=== PATIENT | male | born 1955 | race Hispanic/Latino ===

== ENCOUNTER 2023-10-14 07:49 | Emergency (ER) | payer SELFPAY ==
[2023-10-14 07:52] VITALS: BP 131/75
--- NOTE | 2023-10-14 08:10 | ED.GENMED ---
History of Present Illness
General
Chief Complaint: Swelling
Source: patient
Exam Limitations: none
Time Seen by Provider: 10/14/23 08:03
Travel History
Have you had any contact with someone who has COVID-19?: No
Do you have any symptoms of coronavirus? Fever > 100 degrees, chills, cough, shortness of breath, sore throat, loss of taste or smell, muscle aches, or headache?: No
History of Present Illness
History of Present Illness:
68-year-old male presents with a week to 10 days worth of increased redness swelling and pain to the right leg. No fevers chills or sweats. He is not a diabetic. No associated chest pain or shortness of breath. No known injury. No other
complaints at this time.
Phy Exam
Physical Exam
Physical Exam:
General: Overall nontoxic-appearing male no acute respiratory distress
HEENT : Normocephalic atraumatic
Heart: Regular rate and rhythm no murmurs
Lungs: Clear no wheeze or rales
Skin: Erythema swelling and induration noted to the right lower extremity mainly the lower leg from the ankle to about the knee. No draining wounds however looks like there is a healing blister on the medial aspect of the right ankle
Vascular: 2+ without pedis pulse bilateral feet musculoskeletal exam: The right calf is swollen and tender
Scores
Heart Failure Risk
Heart Failure Risk Score: Not Applicable
Course
Orders/Labs/Results
Orders:
Orders
10/14/23 08:08
Venous Doppler Lwr Ext Rt [[facility] Venous LOWER Ext RT] Urgent
Comment:
Reason For Exam: swelling
10/14/23 08:23
Complete Blood Count/With Diff Urgent
Comprehensive Metabolic Panel Urgent
10/14/23 09:52
Case Management Consult ONCE
Case Management Consult: Other
10/14/23 13:13
Enoxaparin Sodium [Lovenox] 100 mg SC NOW STA
10/14/23 13:32
Warfarin [Coumadin] 10 mg PO NOW STA
Abnormal Lab Results
10/14/23
08:23
WBC 3.4 L 10^3/uL
(4.8-10.8)
RBC 3.55 L 10^6/uL
(4.70-6.10)
Hgb 9.2 L g/dL
(13.0-18.0)
Hct 29.3 L %
(39.0-52.0)
MCH 25.9 L pg
(27.0-31.0)
MCHC 31.4 L g/dL
(33.0-37.0)
RDW 17.1 H %
(11.5-14.5)
Plt Count 108 L 10^3/uL
(130-400)
Absolute Lymphs (auto) 0.8 L 10^3/uL
(1.2-3.4)
Immature Gran % 0.6 H %
(0-0.5)
Chloride 110 H mmol/L
(98-107)
Creatinine 0.5 L mg/dL
(0.7-1.3)
Glucose 152 H mg/dl
(70-99)
Calcium 7.8 L mg/dl
(8.4-10.2)
Alkaline Phosphatase 251 H U/L
(38-126)
Albumin 3.0 L g/dl
(3.5-5.0)
10/14/23 08:23
10/14/23 08:23
Vital Signs
Initial and Last Documented VS:
Initial Vital Signs
Temp Pulse Resp BP Pulse Ox
98.3 F 73 16 131/75 100
10/14/23 07:52 10/14/23 07:52 10/14/23 07:52 10/14/23 07:52 10/14/23 07:52
Last Documented Vital Signs
Temp Pulse Resp BP Pulse Ox
98.3 F 73 16 131/75 100
10/14/23 07:52 10/14/23 07:52 10/14/23 07:52 10/14/23 07:52 10/14/23 07:52
MDM/Problems Addressed
Differential Diagnosis Includes:
Right lower leg swelling and erythema. Consider cellulitis versus DVT doubt underlying abscess
Will check labs. Ultrasound pending.
Patient has no prior medical records to review and has no other medical problems contributing to today's care.
*Critical Care Note
Total Time (30-74mins, 75-104mins- exclusive of procedures): Not Applicable
Update Note
Update Note:
Patient has DVT in right lower extremity on ultrasound. Social situation creates somewhat of a challenge for discharge. He has no insurance and does not have a family doctor. Will start patient on Lovenox for bridge to Coumadin. He will return
here in 3 days for INR recheck. He will in the interim be referred to [facility]. He received a once daily dosing of Lovenox here as well as a 10 mg loading dose of Coumadin. He will then transition to 5 mg daily for the next 2 days
with INR check in 3 days.
ED Attending Note
-
Portions of this chart may have been created with voice recognition software.� Occasional wrong word or��sound alike� substitutions may have occurred due to the inherent limitations of voice recognition software.
Discharge Plan
Departure
Patient Disposition: Home (Routine Discharge)
Date of Disposition: 10/14/23
Time of Disposition: 14:15
Patient with high blood pressure during this ER visit?: No
Discharge Problem:
DVT (deep venous thrombosis)
Instructions: Deep Vein Thrombosis (DVT) ED
Prescriptions:
New
enoxaparin [Lovenox] 60 mg/0.6 mL syringe
60 mg SC Q12H 7 Days Qty: 8.4 0RF
warfarin 5 mg tablet
5 mg PO DAILY Qty: 30 0RF
No Action
trolamine salicylate [Aspercreme] 10 % Cream
1 applic TOPICAL HSPRN PRN (Reason: left leg pain)
Referrals:
[facility]
NONE,* [Family Provider] -
Activity Restrictions/Additional Instructions:
Take 5 mg of Coumadin starting tomorrow. Use the Lovenox injection twice a day. Please return here this Wednesday for an INR recheck. You were referred to the [facility] for follow-up. Please call them tomorrow to start setting an
appointment
Interventions
Interventions:
*Risk Screen - Suicide Last Done: 10/14/23 07:52
*General Assessment Last Done: 10/14/23 07:52
*Neglect/Abuse Screening Last Done: 10/14/23 07:52
Discharge Date and Time
Print Language: LAO
[2023-10-14 08:15] VITALS: BMI 28.4
[2023-10-14 08:38] LABS: % Basophils 0.6 % (0-2); % Eosinophils 5.9 % (0-6); % Immature Granulocytes 0.6 % (0-0.5); % Lymphocytes 23.2 % (20.5-51.1); % Monocytes 7.1 % (1.7-9.3); % Neutrophils 62.6 % (42.2-75.2); Absolute Eosinophils 0.2 10^3/uL (0-0.7); Absolute Lymphocytes 0.8 10^3/uL (1.2-3.4); Absolute Monocytes 0.2 10^3/uL (0.1-0.6); Absolute Neutrophils 2.1 10^3/uL (1.4-6.5); Hematocrit 29.3 % (39.0-52.0); Hemoglobin 9.2 g/dL (13.0-18.0); Mean Corp Hgb Conc. 31.4 g/dL (33.0-37.0); Mean Corpuscular Hgb 25.9 pg (27.0-31.0); Mean Corpuscular Volume 82.5 fL (80.0-94.0); Mean Platelet Volume 9.8 fL (7.4-10.4); Nucleated Red Blood Cells % 0 % (-); Platelet Count 108 10^3/uL (130-400); Red Blood Cell Count 3.55 10^6/uL (4.70-6.10); Red Cell Dist. Width 17.1 % (11.5-14.5); White Blood Cell Count 3.4 10^3/uL (4.8-10.8)
[2023-10-14 08:56] LABS: ALT (SGPT) 42 U/L (0-50); AST (SGOT) 40 U/L (17-59); Alkaline Phosphatase 251 U/L (38-126); Blood Urea Nitrogen 14 mg/dl (9-20); Calcium 7.8 mg/dl (8.4-10.2); Carbon Dioxide 23 mmol/L (22-30); Chloride 110 mmol/L (98-107); Estimated Creatinine Clearance 91 ml/min; Glucose 152 mg/dl (70-99); Potassium 3.6 mmol/L (3.5-5.1); Sodium 141 mmol/L (135-145); Total Bilirubin 0.8 mg/dl (0.2-1.3); eGFR > 60.00
--- NOTE | 2023-10-14 13:33 | CM ---
Mayan speaking patient with Dx DVT right leg.
Spoke with MARCI Burrows; he would like to discharge this patient on Lovenox 60mg SQ BID x 7 days with Coumadin bridge. As patient has no insurance, request is for pharmacy cost and if patient/family can afford. He will issue Coumadin here
and patient will receive Lovenox first dose here with nurse teaching. He will have the patient return to the ED for labwork.
[facility] only has 10 injections in stock, valle for 10 would be $ 126.26 (they will provide discount card), she will have to obtain 4 more and cost for the last 4 will be $ 52.61 (with
discount card). Please write the full script for #14.

Met with patient and son Huang, who speaks Italian;
the patient resides with 3 friends in a 2nd floor apartment above a store, with 1 flight outside stairs.
The patient has been independent with ADLs and ambulation without using any assistive device.
He has no DME, prior VN.
The patient has no PCP.
Pharmacy confirmed with son as [facility].
Son confirms that the patient has no insurance. The son says that the family can afford the cost of the Lovenox and additional cost of Coumadin.
Provided [facility] brochures in Italian and Mohawk, with instruction to make appointment radhames for medical follow up.
The patient's and 6 children reside in [place]. There are 3 sons and 1 daughter who live here locally. The patient plans on returning back to [place] to live with family there later this year. 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
Son will provide transport home.

Spoke with nurse Nieves; provided update CM met with patient and son is hoping for d/c soon after Lovenox injection/teaching.
Plan home today with referral to [facility].
[2023-10-14] MEDS: COUMADIN 10 MG PO (14:15)
[2023-10-14] MEDS: LOVENOX 100 MG SC (14:17)
[2023-10-14 14:54] VITALS: BP 117/61
== END 2023-10-14 14:56 | disposition home or self-care (01) ==
LOC: EMR 07:49
PROVIDERS: Physician Assistant; EMERGENCY PHYSICIAN Emergency Medicine
DX: I82.441 Acute embolism and thrombosis of right tibial vein (principal); Z79.01 Long term (current) use of anticoagulants
CPT/HCPCS: 99284; 96372; 80053; 85025; 93971

== ENCOUNTER → 2023-10-17 07:33 | Emergency (ER) | payer SELFPAY ==
[2023-10-17 07:35] VITALS: BP 126/65
[2023-10-17 09:14] LABS: INR 1.94
--- NOTE | 2023-10-17 09:48 | ED.GENMED ---
History of Present Illness
General
Chief Complaint: Abnormal Lab Value
Source: patient and family
Time Seen by Provider: 10/17/23 08:42
Travel History
Have you had any contact with someone who has COVID-19?: No
Do you have any symptoms of coronavirus? Fever > 100 degrees, chills, cough, shortness of breath, sore throat, loss of taste or smell, muscle aches, or headache?: No
History of Present Illness
History of Present Illness:
68-year-old male with a history of recent DVT diagnosis who presents for repeat INR check. He was put on Lovenox and Coumadin. Patient has not yet called the free clinic. He otherwise has been tolerating his injections well. No other complaints.
Leg is unchanged.
Past History
Past History
ED Past Medical History: Other (DVT)
Phy Exam
Physical Exam
Physical Exam:
CONSTITUTIONAL Vital signs reviewed, Patient alert and oriented to person, place and time. Well-appearing
HEAD atraumatic, normocephalic.
EYES eyelids normal to inspection, Extraocular muscles intact, Conjunctiva normal, Sclera normal.
NECK normal range of motion, Trachea midline, no jugular venous distention.
RESP no respiratory distress
BACK No obvious deformities
UPPER EXTREMITY Gross Range of motion normal, gross motor strength normal
LOWER EXTREMITY Gross range of motion normal, Gross motor strength normal
NEURO Speech normal, No focal motor deficits include, Catrachita coma scale 15, Memory normal, Cranial Nerves intact to screening exam.
SKIN Skin warm, dry, and normal in color.
PSYCHIATRIC Patient oriented to person place and time, Normal affect.
Course
Orders/Labs/Results
Orders:
Orders
10/17/23 08:56
PT/INR [Prothrombin Time] Urgent
10/17/23 09:52
Case Management Consult ONCE
Case Management Consult: Discharge Planning
Abnormal Lab Results
10/17/23
08:56
PT 22.0 H Sec
(11.4-14.6)
Vital Signs
Initial and Last Documented VS:
Initial Vital Signs
Temp Pulse Resp BP Pulse Ox
99.7 F 76 20 126/65 98
10/17/23 07:35 10/17/23 07:35 10/17/23 07:35 10/17/23 07:35 10/17/23 07:35
Last Documented Vital Signs
Temp Pulse Resp BP Pulse Ox
99.7 F 76 20 126/65 98
10/17/23 07:35 10/17/23 07:35 10/17/23 07:35 10/17/23 07:35 10/17/23 07:35
MDM/Problems Addressed
MDM/Problems Addressed:
DVT, therapeutic coagulopathy
*Pulse Oximetry
Patient hypoxic: no
*Critical Care Note
Total Time (30-74mins, 75-104mins- exclusive of procedures): Not Applicable
Data Reviewed
Review of Other/Old Records Reveals: Radiology Studies (DVT report reviewed)
Source: patient and family (Patient's son)
Prescriptions/Medications Considered But Not Given:
Considered Eliquis but unlikely to be able to afford it
Patient Management
Social determinants of health affecting care: Living situation
Discussion with other providers: Other (Case management)
Escalation/DeEscalation of care consider admission/obs:
Continue Lovenox for now but repeat INR this week. Resources given by case management and they will follow-up to make sure that he gets an appointment. INR prescription given for repeat INR. Okay for discharge
ED Attending Note
-
Portions of this chart may have been created with voice recognition software.� Occasional wrong word or��sound alike� substitutions may have occurred due to the inherent limitations of voice recognition software.
Discharge Plan
Departure
Patient Disposition: Home (Routine Discharge)
Date of Disposition: 10/17/23
Time of Disposition: 09:49
Patient with high blood pressure during this ER visit?: No
Discharge Problem:
DVT (deep venous thrombosis)
Instructions: Deep vein thrombosis (blood clot in the leg)
Prescriptions:
No Action
trolamine salicylate [Aspercreme] 10 % Cream
1 applic TOPICAL HSPRN PRN (Reason: left leg pain)
enoxaparin [Lovenox] 60 mg/0.6 mL syringe
60 mg SC Q12H 7 Days Qty: 8.4 0RF
warfarin 5 mg tablet
5 mg PO DAILY Qty: 30 0RF
Referrals:
UNKNOWN - PT DOES,NOT KNOW [Family Provider] -
Activity Restrictions/Additional Instructions:
Please have your lab work checked on . Continue the Lovenox injections as prescribed. Please see the clinic as soon as possible over the next 3 to 5 days. Return immediately for chest pain, shortness of breath, fevers, worsening symptoms,
bleeding of any kind or any other concerns.
Por favor revise rowe an�lisis de laboratorio el jueves. Contin�e con las inyecciones de Lovenox seg�n lo prescrito. Consulte la cl�miguelina lo antes posible linda los pr�ximos 3 a 5 d�as. Regrese inmediatamente si tiene dolor en el pecho, dificultad
para respirar, fiebre, s�ntomas que empeoran, sangrado de cualquier tipo o cualquier otra inquietud.
Discharge Date and Time
Print Language: ANGOLAN
--- NOTE | 2023-10-17 10:03 | CM ---
CM provided patient with pamphlet for [facility]. Patient further advised to call [facility] for self pay pricing for PT/INR. Son understands and was given number for outpatient lab to discuss self pay options.
== END | disposition home or self-care (01) ==
LOC: EMR 07:33
PROVIDERS: EMERGENCY PHYSICIAN Emergency Medicine
DX: I82.409 Acute embolism and thrombosis of unspecified deep veins of unspecified lower extremity (principal); Z79.01 Long term (current) use of anticoagulants
CPT/HCPCS: 99282; 85610

== ENCOUNTER 2023-11-15 20:57 | Inpatient (IN) | payer OTHER, SELFPAY ==
[2023-11-15 16:05] VITALS: BMI 28.0
[2023-11-15 16:08] VITALS: BP 116/65
[2023-11-15 16:32] LABS: % Basophils 0.2 % (0-2); % Eosinophils 6.5 % (0-6); % Immature Granulocytes 0.3 % (0-0.5); % Lymphocytes 19.7 % (20.5-51.1); % Monocytes 9.1 % (1.7-9.3); % Neutrophils 64.2 % (42.2-75.2); Absolute Eosinophils 0.4 10^3/uL (0-0.7); Absolute Lymphocytes 1.2 10^3/uL (1.2-3.4); Absolute Monocytes 0.5 10^3/uL (0.1-0.6); Absolute Neutrophils 3.8 10^3/uL (1.4-6.5); Hemoglobin 10.1 g/dL (13.0-18.0); Mean Corp Hgb Conc. 31.6 g/dL (33.0-37.0); Mean Corpuscular Hgb 24.9 pg (27.0-31.0); Mean Corpuscular Volume 78.8 fL (80.0-94.0); Nucleated Red Blood Cells % 0 % (-); Red Blood Cell Count 4.06 10^6/uL (4.70-6.10); Red Cell Dist. Width 15.4 % (11.5-14.5); White Blood Cell Count 5.8 10^3/uL (4.8-10.8)
[2023-11-15 16:44] LABS: Lactic Acid 1.7 mmol/L (0.7-2.0)
[2023-11-15 16:45] LABS: ALT (SGPT) 37 U/L (0-50); AST (SGOT) 39 U/L (17-59); Albumin 3.5 g/dl (3.5-5.0); Alkaline Phosphatase 198 U/L (38-126); Blood Urea Nitrogen 17 mg/dl (9-20); Calcium 8.2 mg/dl (8.4-10.2); Carbon Dioxide 22 mmol/L (22-30); Chloride 108 mmol/L (98-107); Glucose 110 mg/dl (70-99); Potassium 3.6 mmol/L (3.5-5.1); Sodium 136 mmol/L (135-145); Total Bilirubin 1.4 mg/dl (0.2-1.3); Total Protein 7.8 g/dl (6.3-8.2); eGFR > 60.00
[2023-11-15 16:54] LABS: NT-proBNP < 20.0 pg/ml
[2023-11-15 17:07] LABS: Mean Platelet Volume 10.5 fL (7.4-10.4); Platelet Count 90 10^3/uL (130-400)
--- NOTE | 2023-11-15 18:25 | ED.GENMED ---
History of Present Illness
General
Chief Complaint: Skin Problem
Source: patient and family (Son)
Exam Limitations: other (language barrier)
Time Seen by Provider: 11/15/23 17:55
History of Present Illness
History of Present Illness:
This is a 68 year old male that comes in with c/o right leg swelling and bleeding. Son states that they were here a few weeks ago and he was told that he had a DVT to follow up in the CLinic. Patient was place on Lovenox and Coumadin. Son states
that they have not been able to get into the clinic as they were told they needed the paper work completed so patient has not been taking any medicaiton. States that today his leg is swollen and bleeding. Denies any fever, chills, chest pain, SOB,
abd pain, nausea, vomiting, diarrhea, headache, dizziness, urinary burning.
Past History
Past History
ED Past Medical History: Other (DVT); Negative Asthma, HTN, Hypercholesterolemia or NIDDM
ED Past Surgical History: None
Social History
Tobacco: Non-smoker
Alcohol: None
Personal:
Living: with family
Review of Systems
Review of Systems
All Other Systems: ROS reviewed and negative except as documented in HPI and ROS
Constitutional: Reports no symptoms; Denies fever or chills
EENT: Reports no symptoms
Respiratory: Denies cough or trouble breathing
Cardiac: Reports no symptoms; Denies chest pain
ABD/GI: Reports no symptoms; Denies abdominal pain, nausea, vomiting or diarrhea
: Reports no symptoms; Denies dysuria, frequency or urgency
Musculoskeletal: Reports edema (Swelling right leg with area's of bleeding)
Skin: Reports no symptoms
Neurological: Reports no symptoms; Denies dizzy or headache
Psychiatric: Reports no symptoms
Phy Exam
General Physical Exam
General Presentation: no apparent distress
General age: appears stated age
General Skin: warm and dry
General Habitus: elderly
General Mental: alert
General Hydration: appears well hydrated
ENT Exam
ENT Exam: TM's normal, pharynx normal and neck supple
Eye Exam
Eye Exam: EOMI
Cardiovascular Exam
Cardiovascular Exam: regular rate/rhythm, no edema, no murmur and normal peripheral pulses
Pulmonary Exam
Pulmonary Exam: lungs clear, no respiratory distress, no rales, chest non tender, no crackles, no rhonchi, no wheezing and no cough
Gastrointestinal Exam
Gastrointestinal Exam: normal bowel sounds, non tender, soft, no organomegaly, no pulsatile mass and non distended
Musculoskeletal Exam
Musculoskeletal Exam: edema and other
Skin Exam
Skin Exam: normal color, warm/dry, no petechia and redness (right lower leg with increased warmth and blistering with oozing. There is also skin tears on the proximal lower leg. )
Psychiatric Exam
Psychiatric Exam: normal mood/affect
Course
Orders/Labs/Results
Orders:
Orders
11/15/23 16:21
BNP [NT-proBNP] Urgent
Complete Blood Count/With Diff Urgent
Comprehensive Metabolic Panel Urgent
Lactic Acid Urgent
Blood Culture Urgent
NORY Source: Blood/Venous
Specimen Description:
11/15/23 18:26
Prothrombin Time Urgent
US Legs, Right [US Periph Venous LOWER Ext RT] Urgent
Comment: History of DVT but denies blood thinners
Reason For Exam: Swelling
Abnormal Lab Results
11/15/23
16:21
RBC 4.06 L 10^6/uL
(4.70-6.10)
Hgb 10.1 L g/dL
(13.0-18.0)
Hct 32.0 L %
(39.0-52.0)
MCV 78.8 L fL
(80.0-94.0)
MCH 24.9 L pg
(27.0-31.0)
MCHC 31.6 L g/dL
(33.0-37.0)
RDW 15.4 H %
(11.5-14.5)
Plt Count 90 L 10^3/uL
(130-400)
MPV 10.5 H fL
(7.4-10.4)
Lymphocytes % 19.7 L %
(20.5-51.1)
Eosinophils % 6.5 H %
(0-6)
Chloride 108 H mmol/L
(98-107)
Creatinine 0.6 L mg/dL
(0.7-1.3)
Glucose 110 H mg/dl
(70-99)
Calcium 8.2 L mg/dl
(8.4-10.2)
Total Bilirubin 1.4 H mg/dl
(0.2-1.3)
Alkaline Phosphatase 198 H U/L
(38-126)
11/15/23 16:21
11/15/23 16:21
H/H low,. Anemia, Hyperglycemia. Calcium slightly low. Alk phos elevation. Lactic acid normal at 1.7, Pro-BNP<20.0
Vital Signs
Initial and Last Documented VS:
Initial Vital Signs
Temp Pulse Resp BP Pulse Ox
98.1 F 81 20 116/65 99
11/15/23 16:08 11/15/23 16:08 11/15/23 16:08 11/15/23 16:08 11/15/23 16:08
Last Documented Vital Signs
Temp Pulse Resp BP Pulse Ox
98.1 F 81 20 116/65 99
11/15/23 16:08 11/15/23 16:08 11/15/23 16:08 11/15/23 16:08 11/15/23 16:08
MDM/Problems Addressed
Differential Diagnosis Includes:
Cellulitis, DVT untreated
MDM/Problems Addressed:
This is a 68 year old male that is brought in by famly with c/o right leg swelling, redness and bleeding.
Will get labs, US and admit as patient has not been able to get into the Clinic for further care.
Chronic conditions affecting care:
History of DVT
Acute Exacerbation and/or Progression of Chronic Illness:
DVT
*Radiology
Radiology exam reviewed: radiology read reviewed (US=No sonographic evidence for acute right lower extremity deep venous thrombosis. Chronic nonocclusive deep venous thrombosis in the right peroneal vein. )
*Pulse Oximetry
Patient hypoxic: no
*EKG
Interpreted by ED Provider?: NA
Rate: EKG- N/A
*Newspaper Editor Interpretation
Rate: Newspaper Editor- N/A
*Critical Care Note
Total Time (30-74mins, 75-104mins- exclusive of procedures): Not Applicable
ED Attending Note
-
Portions of this chart may have been created with voice recognition software.� Occasional wrong word or��sound alike� substitutions may have occurred due to the inherent limitations of voice recognition software.
Discharge Plan
Departure
Patient Disposition: Admit
Date of Disposition: 11/15/23
Time of Disposition: 19:36
Admit to: Med/Surg
Presentation/result/management discussed w/ accepting MD/DO: Hospitalist
Patient with high blood pressure during this ER visit?: No
Condition: Good
Covid-19: Not Applicable
Discharge Problem:
Cellulitis with blistering right leg
Prescriptions:
No Action
No Current Medications
0
Referrals:
NONE,* [Family Provider] -
Interventions
Interventions:
*Risk Screen - Suicide Last Done: 11/15/23 16:08
*General Assessment Last Done: 11/15/23 16:08
*Neglect/Abuse Screening Last Done: 11/15/23 16:08
ED- Fall Risk Assessment Last Done: 11/15/23 18:00
ED-Skin Assessment Last Done: 11/15/23 18:00
Discharge Date and Time
Print Language: CROATIAN
[2023-11-15 19:44] LABS: INR 1.31; PT 16.1 Sec (11.4-14.6)
--- NOTE | 2023-11-15 19:58 | HPS.HSE ---
Family Physician
-
Family Physician: * NONE
Chief Complaint
-
Right lower extremity increased erythema, pain, weeping
History of Present Illness
68-year-old male was seen on 10/14/2023 for a 10-day history of pain and swelling to his right leg. He was diagnosed with a DVT and was put on Lovenox and Coumadin and sent back on 10/17/2023 for INR check. He was due to [facility] but was unable to get an appointment due to incompleted paperwork, therefore he has not been taking any Coumadin. He returns today for increased swelling to his leg with edema and weeping serous fluid. His son is at bedside with him who
states it took several weeks to complete the paperwork and submitted. His father has been here illegally for 19 years illegally along with himself illegally. 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 I made the
son aware he cannot be working or lifting with an untreated DVT in his current leg. He has not seen a doctor in over 20 years he is on no current medications with no past surgical history
Medical History
Past Medical History
Past Medical History: Reports Other
Past Surgical History: Reports None
Social History
Tobacco: Former Smoker (Quit 14 years ago)
Alcohol: Occasional (Every 3 months)
Living: With Family
Employment: Employed
Family History
Family History: Not pertinent
Allergies / Home Medications
Allergies reflects when Allergies were last updated in [facility].
Home Medications with original date entered in [facility]
Allergy/Medication List:
Allergies
Allergy/AdvReac Type Severity Reaction Status Date / Time
No Known Allergies Allergy Verified 11/15/23 16:08
Home Medications
No Meds [No Current Medications] 11/15/23
Review of Systems
-
History Source: Patient and Family (Son at bedside translating for patient who speaks Iraqi)
A 12 point ROS was completed and negative except as noted: Yes
Constitutional: Denies Fever or Fatigue
EENT: Denies Sore Throat or Runny Nose
Respiratory: Denies Cough or Trouble Breathing
Cardiac: Denies Chest Pain, Diaphoresis, Palpitations or Syncope
Abdomen/GI: Denies Abdominal Pain, Nausea, Vomiting, Diarrhea, Constipated, Bloody Stools or Black Stools
: Denies Dysuria, Frequency, Flank Pain, Incontinence or Difficulty Voiding
Musculoskeletal: Reports Edema (Right lower extremity edema +2 weeping serous fluid, resolved blister medial aspect of leg surrounding slight pink erythema likely secondary to edema); Denies Joint Pain
Skin: Denies Itching or Rash
Neurological: Denies Dizzy, Headache or Weakness
Endocrine: Reports No Symptoms
Hematologic/Lymphatic: Reports No Symptoms
Psych: Reports Calm
Physical Exam
Vital Signs
Vital Signs
Temp Pulse Resp BP Pulse Ox
98.1 F 81 20 116/65 99
11/15/23 16:08 11/15/23 16:08 11/15/23 16:08 11/15/23 16:08 11/15/23 16:08
Physical Exam
General: Comfortable and Conversant; No Fever or Chills
HEENT: NormoCephalic, Anicteric, Moist mucous membranes, PERRLA, [place] Conjunctivae and No Ptosis
Respiratory: Clear; No Wheezes, Rales or Rhonchi
Cardiac: S1/S2, Regular Rhythm and Peripheral Edema (Right lower extremity edema +2 weeping serous fluid, resolved blister medial aspect of leg surrounding slight pink erythema likely secondary to edema); No Murmur, Rub or Gallop
Breast: Deferred by me
GI: Soft, Non Tender, Non Distended, Normal Bowel Sounds and No Hepatosplenomegaly
Rectal: Deferred by Provider
Genito-urinary: Deferred by me
Musculoskeletal: No Clubbing, No Cyanosis and Edema, Right Lower Extremity (Right lower extremity edema +2 weeping serous fluid, resolved blister medial aspect of leg surrounding slight pink erythema likely secondary to edema); No Edema, Left Upper
Extremity, Edema, Right Upper Extremity or Edema, Left Lower Extremity
Skin: Warm and Dry; No Rash
Neuro: AO x 3, No Motor Deficits, Nonfocal/grossly intact, Cranial Nerves Intact and No Sensory Deficits; No Slurred Speech, Facial Droop or Tremors
Psych: Calm
Laboratory Results
-
11/15/23 16:21
11/15/23 16:21
Laboratory Results
PT 16.1 Sec (11.4-14.6) H 11/15/23 19:23
INR 1.31 11/15/23 19:23
Lactic Acid 1.7 mmol/L (0.7-2.0) 11/15/23 16:21
Total Bilirubin 1.4 mg/dl (0.2-1.3) H 11/15/23 16:21
AST 39 U/L (17-59) 11/15/23 16:21
ALT 37 U/L (0-50) 11/15/23 16:21
Alkaline Phosphatase 198 U/L (38-126) H 11/15/23 16:21
Impression/Plan
-
Impression/plan:
Admit to MedSurg
#Right leg cellulitis with Chronic Nonocclusive DVT RIGHT PERINEAL VEIN
#Recent Dx DVT right lower extremity 10/14/2023
Was put on Lovenox to Coumadin bridge due to no insurance/no PCP
-Iv Ancef q8h
- Iv Heparin gtt
Right lower extremity peripheral venous ultrasound: Chronic nonocclusive DVT right peroneal vein
no acute right lower extremity DVT
#Chronic anemia microcytic
Hgb 10.1 prior 23 Sep 2023
Check iron, TIBC, ferritin, B12, folate
-check hemo occult
# Acute thrombocytopenia unclear etiology
PLT 90 prior October 14, 2023
- Consult Heme
#Former smoker
Quit 14 years ago
DVT prophylaxis
iv heparin gtt
Full code
[2023-11-15] MEDS: ZOSYN 50 IV (20:03)
[2023-11-15] MEDS: VANCOCIN 200 IV (20:35)
--- NOTE | 2023-11-15 21:00 | W.PN.UPDATE ---
Update Note
Progress Note Update
This is an addendum to the H&P written by Niru Delgado on 11/15/2023. Patient seen examined independently with CLAIMS COUNSEL.
68-year-old illegal Cypriot-speaking male with history of right lower extremity DVT not adequately treated with anticoagulation presenting with increasing swelling and edema and weeping the right lower extremity.
Labs show shows microcytic anemia with hemoglobin 10.1. Also mild thrombocytopenia unclear etiology. As per son patient is having some bright red blood per rectum after wiping suggesting hemorrhoidal etiology.
# Right lower extremity unprovoked DVT
-Heparin drip
-IV Ancef for possible superinfection
# Microcytic anemia suspect GI blood loss
-Check Hemoccult, iron studies, B12, folate
# Thrombocytopenia unclear etiology
-Hematology consulted
[2023-11-15 21:07] LABS: Total Iron Binding Capacity 428 ug/dl (261-462)
[2023-11-15 21:11] LABS: APTT 29.9 Sec (23.4-35.0)
[2023-11-15 21:22] LABS: Iron 49 ug/dl (49-181); Percent Saturation 11 % (20-50)
[2023-11-15 21:28] LABS: Ferritin 12.5 ng/ml (17.9-464.0)
[2023-11-15 21:41] VITALS: BP 140/65; BMI 26.7
[2023-11-15 21:59] LABS: Folate 14.2 ng/ml (2.76-20); Vitamin B12 496 pg/ml (239-931)
[2023-11-15 22:00] LABS: Hematocrit 30.6 % (39.0-52.0); Hemoglobin 10.2 g/dL (13.0-18.0); Mean Corp Hgb Conc. 33.3 g/dL (33.0-37.0); Mean Corpuscular Hgb 25.2 pg (27.0-31.0); Mean Corpuscular Volume 75.7 fL (80.0-94.0); Mean Platelet Volume 10.4 fL (7.4-10.4); Platelet Count 87 10^3/uL (130-400); Red Blood Cell Count 4.04 10^6/uL (4.70-6.10); Red Cell Dist. Width 15.6 % (11.5-14.5); White Blood Cell Count 5.6 10^3/uL (4.8-10.8)
[2023-11-15] MEDS: HEPARIN 4000 UNITS IV (22:49)
[2023-11-15] MEDS: HEPARIN 25000 UNITS/250 ML IV (22:51)
[2023-11-15 23:57] VITALS: BP 118/52
--- NOTE | 2023-11-16 00:34 | PTCARENOTE ---
Pt received from ED aaox3, pt son at bedside helped with communication as pt primarily K[place] speaking & 2nd language is macedonian. Pt leg with draining wounds, wound care consult placed. Pt started on heparin drip as ordered & bolus givem. Pt & son
explained about the plan of care.Call brunson in reach.
[2023-11-16] MEDS: ANCEF 5 IV ×3 (03:17→17:18)
[2023-11-16] MEDS: FLUSH (NSS) 1 FLUSH IV (03:17)
[2023-11-16 06:20] LABS: APTT 116.9 Sec (23.4-35.0)
[2023-11-16 07:35] VITALS: BP 100/62
--- NOTE | 2023-11-16 09:06 | W.PN.HOSP.TC ---
Addendum entered and electronically signed by Elliot Snyder MD 11/16/23 13:46:
Noticed hematology input so will stop heparin gtt and start Lovenox for prevention doses.
Original Note:
Today's Communication/Plan
-
IV antibiotics. Heparin drip. Hematology eval. PT OT
Assessment / Plan
Assessment / Plan
Physical exam:
General: Acutely ill
HEENT: Normocephalic, Atraumatic and Moist Mucous Membranes
Respiratory: Clear to Auscultation; Negative Wheezes, Rales or Rhonchi
Cardiac: Regular Rhythm and S1/S2
GI: Soft, Nontender and Nondistended
Musculoskeletal: Right lower extremity erythema. Wounds in the tibia and foot area. No Clubbing, No Cyanosis
Neuro: Awake, Alert and Oriented
Psych: Calm
A/P:
Right lower extremity cellulitis:
Continue IV cefazolin
Would consult
Elevate lower extremity
PT OT eval
Chronic DVT, right lower extremity (untreated):
Continue IV heparin drip
Hematology consult pending
Monitor hemoglobin
Thrombocytopenia:
Appears to be chronic
Hematology eval
Platelet count 81 today
No active bleeding
Anemia:
Hemoglobin 10.1 today
Stable
Continue to monitor hemoglobin on anticoagulant
Hemorrhoidal bleed:
Monitor for any worsening
DVT prophylaxis:
On heparin drip
CODE STATUS:
Full code
Anticipated Discharge: 24 - 48 hours
Subjective/Interval History
-
Date of Service: November 16, 2023
Patient complains of right leg discomfort. Afebrile
Objective Data
-
Labs:
Laboratory Results
11/15/23 11/15/23 11/16/23
19:23 21:53 05:46
WBC 5.6
Hgb 10.2 L
Hct 30.6 L
Plt Count 87 L
APTT 29.9 116.9 H
11/16/23
12:40
WBC
Hgb
Hct
Plt Count
APTT Pending
Vital Signs:
Vital Signs
Temp Pulse Resp BP Pulse Ox
98.7 F 69 18 100/62 97
11/16/23 07:35 11/16/23 07:35 11/16/23 07:35 11/16/23 07:35 11/16/23 07:35
I&O
11/15/23 11/16/23 11/17/23
06:59 06:59 06:59
Intake Total 240 / 240
Balance 240 / 240
[2023-11-16] MEDS: FLUSH (NSS) 2 FLUSH IV ×2 (10:06→17:18)
[2023-11-16 10:29] LABS: % Basophils 0.2 % (0-2); % Eosinophils 7.2 % (0-6); % Immature Granulocytes 0.2 % (0-0.5); % Lymphocytes 25.7 % (20.5-51.1); % Monocytes 8.7 % (1.7-9.3); Absolute Eosinophils 0.3 10^3/uL (0-0.7); Absolute Lymphocytes 1.2 10^3/uL (1.2-3.4); Absolute Monocytes 0.4 10^3/uL (0.1-0.6); Absolute Neutrophils 2.6 10^3/uL (1.4-6.5); Hematocrit 32.6 % (39.0-52.0); Hemoglobin 10.1 g/dL (13.0-18.0); Mean Corpuscular Hgb 24.6 pg (27.0-31.0); Mean Corpuscular Volume 79.3 fL (80.0-94.0); Mean Platelet Volume 10.8 fL (7.4-10.4); Nucleated Red Blood Cells % 0 % (-); Platelet Count 81 10^3/uL (130-400); Red Blood Cell Count 4.11 10^6/uL (4.70-6.10); Red Cell Dist. Width 15.7 % (11.5-14.5); White Blood Cell Count 4.5 10^3/uL (4.8-10.8)
[2023-11-16 10:55] LABS: Blood Urea Nitrogen 16 mg/dl (9-20); Carbon Dioxide 18 mmol/L (22-30); Chloride 109 mmol/L (98-107); Estimated Creatinine Clearance 81 ml/min; Glucose 225 mg/dl (70-99); Potassium 3.9 mmol/L (3.5-5.1); Sodium 135 mmol/L (135-145); eGFR > 60.00
--- NOTE | 2023-11-16 11:38 | WOUNDNOTE ---
LEGS WITH PHOTO FLASH
--- NOTE | 2023-11-16 11:38 | WOUNDNOTE ---
R DORSAL FOOT WITH FLASH
--- NOTE | 2023-11-16 11:39 | WOUNDNOTE ---
R MEDIAL DORSAL FOOT
--- NOTE | 2023-11-16 11:39 | WOUNDNOTE ---
R MEDIAL LOWER LEG BELOW KNEE
--- NOTE | 2023-11-16 11:41 | WOUNDNOTE ---
SUSAN RN note: Patient admitted with R leg cellulitis.
See H&P for complete history. Lives with Son in an apartment.
PMH: DVT.
Wound Location and type/assessment: Patient admitted with: chronic non occlusive DVT in R peroneal vein. R medial leg and foot with open shallow blisters, large serous on dorsal foot. Suspect blisters related to leg swelling. Wounds painful to
touch when cleaning, skin warm, +pedal pulses, 3+ edema. Able to lift leg, nothing open posterior leg, heel intact. Patient does not speak [place] Verde[place].
Appetite: good.
Pressure redistribution devices in place: Accumax, ad dean
Plan: local absorptive wound care dressing applied, leg elevation. Skin dry on both legs, will order mineral oil for tomorrow. Will confirm orders with hospitalist and updated nurse Cinthya.
Updated care plan and will follow as needed.
Note to case management of equipment requested for discharge: TBD
Recommend follow up at wound care center upon discharge.
--- NOTE | 2023-11-16 12:29 | CON.ONC ---
Impression
Impression
Cellulitis right lower extremity
Thrombosis right peroneal vein, possibly chronic
Unexplained iron deficiency anemia
Mild thrombocytopenia
Plan
Plan
Antibiotics as per primary service. By the reading of the most recent venous Doppler, he does not require full dose anticoagulation. Even the prior venous Doppler showed clot only below the knee, and as such monitoring as opposed to full dose
anticoagulation would be an option.
Will hold off on IV iron, some potential risk given acute infection.
Will eventually need GI evaluation.
I am concerned that he has some swelling and pain in his thigh area on the right, which seems a little distant from his acute cellulitis. He may need imaging of the abdomen, pelvis, and thigh.
Regarding his thrombocytopenia, would recommend monitoring for now. This could conceivably be due to the infection. He should be started on oral iron.
Patient History
History of Present Illness
Consult from Dr. Hwang regarding deep vein thrombosis
This 68-year-old man was admitted with cellulitis. He is here about 1 month ago with swelling of his right lower extremity, and was found to have thrombosis of the right posterior tibial and peroneal veins, as well as cellulitis. He was discharged
on Lovenox and warfarin with follow-up in the [facility] clinic, which unfortunately did not occur. As best I can see, he was not placed on antibiotics. Since then, the leg is worsened. He is now clinically felt to have an overt cellulitis.
Repeat venous Doppler shows only thrombosis in the peroneal vein, and that is felt to be chronic. He is also been found to be iron deficient, with a ferritin of 12. He has had a mild thrombocytopenia between 80,000 and 100,000 during all of his
lab tests in the past month.
Patient Medication
�Medication �Instructions �Recorded �Confirmed �Last Taken �Type
No Meds [No Current Medications] 11/15/23 11/15/23 Unknown History
Active Medications
Generic Name Dose Route Start Last Admin
Trade Name Freq PRN Reason Stop Dose Admin
Emollient Ointment 0 applic 11/17/23 08:00
Petrolatum/Mineral Oil (Hydrophor) Oint 100 Gram TOPICAL 12/15/23 07:59
DAILY MALIHA
Heparin Sodium 5,200 units 11/15/23 20:48
Heparin 80 Units/Kg Rebolus-Do Not Discard IV 12/13/23 20:47
PRN PRN
PTT < OR = 64 seconds
Heparin Sodium 2,600 units 11/15/23 20:48
Heparin 40 Units/Kg Rebolus-Do Not Discard IV 12/13/23 20:47
PRN PRN
PTT = 64.1 to 72.9 seconds
Heparin Sodium 25,000 units in 250 mls @ 0 mls/hr 11/15/23 20:30 11/15/23 22:51
Heparin 51489 Units/250 Ml IV 250 mls
PER PROTOCOL MALIHA Administration
Protocol
Per Protocol
Cefazolin Sodium 1 gram in 5 mls @ 60 mls/hr 11/16/23 02:00 11/16/23 10:06
Ancef IV 5 mls
Q8H MALIHA Administration
Sodium Chloride 0 flush 11/15/23 22:00 11/16/23 10:06
Sodium Chloride 0.9% (Flush) Syringe IV 12/13/23 21:59 2 flush
PER PROTOCOL MALIHA Administration
Tramadol HCl 25 mg 11/15/23 23:37
Tramadol Hcl 50 Mg Tablet PO 12/13/23 23:36
Q6HPRN PRN
mod pain
Review of Systems
-
All Other Systems: Reviewed and Negative
Physical Exam
-
Physical examination shows the patient to be in no acute distress.
HEENT exam is unremarkable.
There are no palpable nodes.
Chest is clear.
The heart is regular with no murmur or gallop.
The abdomen is soft and nontender with no organomegaly or masses.
Extremities show the right lower extremity to be dressed from the knee down. On that side, the thigh is mildly swollen compared to the left, and he does complain of tenderness there as well..
Neurologic is grossly intact.
Labs
Lab Results
WBC 4.5 10^3/uL (4.8-10.8) L 11/16/23 10:01
RBC 4.11 10^6/uL (4.70-6.10) L 11/16/23 10:01
Hgb 10.1 g/dL (13.0-18.0) L 11/16/23 10:01
Hct 32.6 % (39.0-52.0) L 11/16/23 10:01
MCV 79.3 fL (80.0-94.0) L 11/16/23 10:01
MCH 24.6 pg (27.0-31.0) L 11/16/23 10:01
MCHC 31.0 g/dL (33.0-37.0) L 11/16/23 10:01
RDW 15.7 % (11.5-14.5) H 11/16/23 10:01
Plt Count 81 10^3/uL (130-400) L 11/16/23 10:01
MPV 10.8 fL (7.4-10.4) H 11/16/23 10:01
Abs Immat Gran (auto) 0.0 10^3/uL (0-0.05) 11/16/23 10:01
Absolute Neuts (auto) 2.6 10^3/uL (1.4-6.5) 11/16/23 10:01
Absolute Lymphs (auto) 1.2 10^3/uL (1.2-3.4) 11/16/23 10:01
Absolute Monos (auto) 0.4 10^3/uL (0.1-0.6) 11/16/23 10:01
Absolute Eos (auto) 0.3 10^3/uL (0-0.7) 11/16/23 10:01
Absolute Basos (auto) 0.0 10^3/uL (0-0.2) 11/16/23 10:01
Immature Gran % 0.2 % (0-0.5) 11/16/23 10:01
Neutrophils % 58.0 % (42.2-75.2) 11/16/23 10:01
Lymphocytes % 25.7 % (20.5-51.1) 11/16/23 10:01
Monocytes % 8.7 % (1.7-9.3) 11/16/23 10:01
Eosinophils % 7.2 % (0-6) H 11/16/23 10:01
Basophils % 0.2 % (0-2) 11/16/23 10:01
Creatinine 0.6 mg/dL (0.7-1.3) L 11/16/23 10:01
Vital Signs
Vital Signs
Temp Pulse Resp BP Pulse Ox
98.7 F 69 18 100/62 97
11/16/23 07:35 11/16/23 07:35 11/16/23 07:35 11/16/23 07:35 11/16/23 07:35
[2023-11-16 13:06] LABS: APTT 58.3 Sec (23.4-35.0)
[2023-11-16] MEDS: HEPARIN 5200 UNITS IV (13:23)
[2023-11-16 15:39] VITALS: BP 102/58
[2023-11-16] MEDS: LOVENOX 40 MG SC (17:18)
[2023-11-16 23:38] VITALS: BP 133/70
[2023-11-17] MEDS: ANCEF 5 IV ×3 (02:02→17:04)
[2023-11-17 07:05] LABS: % Eosinophils 7.7 % (0-6); % Immature Granulocytes 0.2 % (0-0.5); % Lymphocytes 25.5 % (20.5-51.1); % Monocytes 11.4 % (1.7-9.3); % Neutrophils 55.2 % (42.2-75.2); Absolute Eosinophils 0.4 10^3/uL (0-0.7); Absolute Lymphocytes 1.2 10^3/uL (1.2-3.4); Absolute Monocytes 0.6 10^3/uL (0.1-0.6); Absolute Neutrophils 2.7 10^3/uL (1.4-6.5); Hematocrit 30.6 % (39.0-52.0); Hemoglobin 9.9 g/dL (13.0-18.0); Mean Corp Hgb Conc. 32.4 g/dL (33.0-37.0); Mean Corpuscular Hgb 24.8 pg (27.0-31.0); Mean Corpuscular Volume 76.7 fL (80.0-94.0); Mean Platelet Volume 10.9 fL (7.4-10.4); Nucleated Red Blood Cells % 0 % (-); Platelet Count 84 10^3/uL (130-400); Red Blood Cell Count 3.99 10^6/uL (4.70-6.10); Red Cell Dist. Width 15.9 % (11.5-14.5); White Blood Cell Count 4.8 10^3/uL (4.8-10.8)
[2023-11-17 07:21] VITALS: BP 114/61
[2023-11-17 07:33] LABS: Blood Urea Nitrogen 19 mg/dl (9-20); Calcium 7.6 mg/dl (8.4-10.2); Carbon Dioxide 22 mmol/L (22-30); Chloride 109 mmol/L (98-107); Estimated Creatinine Clearance 81 ml/min; Glucose 125 mg/dl (70-99); Potassium 3.7 mmol/L (3.5-5.1); Sodium 136 mmol/L (135-145); eGFR > 60.00
--- NOTE | 2023-11-17 08:09 | W.PN.HOSP.TC ---
Today's Communication/Plan
-
IV antibiotics. PT OT eval
Assessment / Plan
Assessment / Plan
Physical exam:
General: Acutely ill
HEENT: Normocephalic, Atraumatic and Moist Mucous Membranes
Respiratory: Clear to Auscultation; Negative Wheezes, Rales or Rhonchi
Cardiac: Regular Rhythm and S1/S2
GI: Soft, Nontender and Nondistended
Musculoskeletal: Right lower extremity erythema. Wounds in the tibia and foot area. No Clubbing, No Cyanosis
Neuro: Awake, Alert and Oriented
Psych: Calm
A/P:
Right lower extremity cellulitis:
Continue IV cefazolin for 24 more hours and hopefully change to oral tomorrow
Would consult
Elevate lower extremity
X-ray unremarkable for bony involvement
PT OT eval
Chronic DVT, right lower extremity (untreated):
Hematology consult recommended against full anticoagulation and follow-up images as outpatient
Heparin drip discontinued yesterday
On Lovenox 40 mg dose
Monitor hemoglobin
Thrombocytopenia:
Appears to be chronic
Hematology eval
Platelet count 84 today
No active bleeding
Anemia:
Hemoglobin 9.9 today
Stable
Continue to monitor hemoglobin on anticoagulant
Hemorrhoidal bleed:
Monitor for any worsening
DVT prophylaxis:
Lovenox SQ
CODE STATUS:
Full code
Anticipated Discharge: 24 - 48 hours
Subjective/Interval History
-
Date of Service: November 17, 2023
Patient feels better overall but still with erythema and edema in right lower extremity. Afebrile
Objective Data
-
Labs:
Laboratory Results
11/17/23
06:36
WBC 4.8
Hgb 9.9 L
Hct 30.6 L
Plt Count 84 L
Sodium 136
Potassium 3.7
Chloride 109 H
Carbon Dioxide 22
BUN 19
Creatinine 0.6 L
Glucose 125 H
Calcium 7.6 L
Vital Signs:
Vital Signs
Temp Pulse Resp BP Pulse Ox
98.6 F 66 14 114/61 99
11/17/23 07:21 11/17/23 07:21 11/17/23 07:21 11/17/23 07:21 11/17/23 07:21
I&O
11/16/23 11/17/23 11/18/23
06:59 06:59 06:59
Intake Total 240 / 240 600 / 600
Balance 240 / 240 600 / 600
[2023-11-17 09:00] VITALS: BP 120/69; PULSE 72
[2023-11-17] MEDS: HYDROPHOR 1 APPLIC TOPICAL (09:19)
[2023-11-17 11:12] VITALS: BP 120/69; PULSE 72
[2023-11-17] MEDS: FEOSOL 325 MG PO (11:58)
[2023-11-17 14:32] VITALS: BP 117/60
--- NOTE | 2023-11-17 14:40 | CM ---
Addendum entered by Jo Gagnon 11/17/23 14:45:
PT recommendation is home with no needs at this time.
Original Note:
Patient seen at bedside, interactive media designer spoke with patient and patient called son to review admission assessment information. Per patient he lives above a restaurant and has about 10 steps to enter. Patient stated he has no PCP, however the son
indicated that about 2 weeks ago they started going to the [facility]. Patient and son use the [facility] in [place] for pharmacy needs. Patient lives with four other 'boys'. Patient has no DME or needs at this time. Patient son indicated
that patient does not have MC and he will plan to belt picker his father tomorrow at 1pm. Patient indicated plan was for discharge home with PO antibiotics. CM will continue to follow for discharge planning needs.
Plan; home with family; follow up at [facility]
[2023-11-17] MEDS: LOVENOX 40 MG SC (17:04)
[2023-11-17] MEDS: ULTRAM 25 MG PO (21:59)
[2023-11-17 23:16] VITALS: BP 109/50
[2023-11-18] MEDS: ANCEF 5 IV ×2 (02:04→09:37)
[2023-11-18 07:10] VITALS: BP 109/59
--- NOTE | 2023-11-18 09:26 | W.PN.HOSP.TC ---
Today's Communication/Plan
-
Increase doses IV antibiotics.
Assessment / Plan
Assessment / Plan
Physical exam:
General: Acutely ill
HEENT: Normocephalic, Atraumatic and Moist Mucous Membranes
Respiratory: Clear to Auscultation; Negative Wheezes, Rales or Rhonchi
Cardiac: Regular Rhythm and S1/S2
GI: Soft, Nontender and Nondistended
Musculoskeletal: Right lower extremity erythema. Wounds in the tibia and foot area. No Clubbing, No Cyanosis
Neuro: Awake, Alert and Oriented
Psych: Calm
A/P:
Right lower extremity cellulitis:
Continue IV cefazolin but increased doses to 2 g IV every 8 hours
Elevate lower extremity
Would consult appreciated
X-ray unremarkable for bony involvement
PT OT eval
Chronic DVT, right lower extremity (untreated):
Hematology consult recommended against full anticoagulation and monitor
Heparin drip discontinued
On Lovenox 40 mg daily
Monitor hemoglobin
Thrombocytopenia:
Appears to be chronic
Hematology eval
Platelet count 84 on 11/16
No active bleeding
Anemia:
Hemoglobin 9.9 on 11/16
Stable
Continue to monitor hemoglobin on anticoagulant
Hemorrhoidal bleed:
Monitor for any worsening
DVT prophylaxis:
Lovenox SQ
CODE STATUS:
Full code
Anticipated Discharge: 24 - 48 hours
Subjective/Interval History
-
Date of Service: November 18, 2023
Patient had some worsening serous drainage over the last 24 hours on his right lower extremity. Afebrile
Objective Data
-
Vital Signs:
Vital Signs
Temp Pulse Resp BP Pulse Ox
98.7 F 75 18 109/59 96
11/18/23 07:10 11/18/23 07:10 11/18/23 07:10 11/18/23 07:10 11/18/23 07:10
I&O
11/17/23 11/18/23 11/19/23
06:59 06:59 06:59
Intake Total 600 / 600 720 / 720
Balance 600 / 600 720 / 720
[2023-11-18] MEDS: HYDROPHOR 1 APPLIC TOPICAL (09:36)
[2023-11-18] MEDS: FEOSOL 325 MG PO (09:36)
[2023-11-18 15:39] VITALS: BP 112/63
[2023-11-18] MEDS: LOVENOX 40 MG SC (17:53)
[2023-11-18] MEDS: ANCEF 10 IV (17:53)
[2023-11-18] MEDS: TYLENOL 650 MG PO (18:39)
[2023-11-18] MEDS: BENADRYL 25 MG PO (21:16)
[2023-11-18] MEDS: COMPAZINE 5 MG IV (21:17)
[2023-11-18 23:46] VITALS: BP 99/55
[2023-11-19] MEDS: ANCEF 10 IV ×2 (01:58→09:22)
[2023-11-19 07:15] VITALS: BP 108/65
[2023-11-19 07:18] LABS: % Basophils 0.1 % (0-2); % Eosinophils 12.5 % (0-6); % Immature Granulocytes 0.3 % (0-0.5); % Lymphocytes 25.7 % (20.5-51.1); % Monocytes 8.2 % (1.7-9.3); % Neutrophils 53.2 % (42.2-75.2); Absolute Eosinophils 0.9 10^3/uL (0-0.7); Absolute Lymphocytes 1.8 10^3/uL (1.2-3.4); Absolute Monocytes 0.6 10^3/uL (0.1-0.6); Absolute Neutrophils 3.7 10^3/uL (1.4-6.5); Hematocrit 33.4 % (39.0-52.0); Mean Corp Hgb Conc. 32.9 g/dL (33.0-37.0); Mean Corpuscular Hgb 25.1 pg (27.0-31.0); Mean Corpuscular Volume 76.3 fL (80.0-94.0); Mean Platelet Volume 10.6 fL (7.4-10.4); Nucleated Red Blood Cells % 0 % (-); Platelet Count 98 10^3/uL (130-400); Red Blood Cell Count 4.38 10^6/uL (4.70-6.10); Red Cell Dist. Width 16.3 % (11.5-14.5)
[2023-11-19 07:37] LABS: Blood Urea Nitrogen 15 mg/dl (9-20); Calcium 8.1 mg/dl (8.4-10.2); Carbon Dioxide 19 mmol/L (22-30); Chloride 108 mmol/L (98-107); Estimated Creatinine Clearance 81 ml/min; Glucose 128 mg/dl (70-99); Potassium 3.8 mmol/L (3.5-5.1); Sodium 134 mmol/L (135-145); eGFR > 60.00
--- NOTE | 2023-11-19 08:49 | W.PN.HOSP.TC ---
Today's Communication/Plan
-
Stop current antibiotic and switch to another today. ID consult.
Assessment / Plan
Assessment / Plan
Physical exam:
General: Acutely ill
HEENT: Normocephalic, Atraumatic and Moist Mucous Membranes
Respiratory: Clear to Auscultation; Negative Wheezes, Rales or Rhonchi
Cardiac: Regular Rhythm and S1/S2
GI: Soft, Nontender and Nondistended
Musculoskeletal: Right lower extremity erythema. Wounds in the tibia and foot area. No Clubbing, No Cyanosis
Neuro: Awake, Alert and Oriented
Psych: Calm
A/P:
Right lower extremity cellulitis:
Stop IV cefazolin today
Might consider IV vancomycin but will request ID consult and await further input to avoid multiple changes of antibiotics in the setting of allergic reaction. If they do not see him later today then I will start IV vancomycin.
Elevate lower extremity
Would consult appreciated
X-ray unremarkable for bony involvement
PT OT eval
WBC 7
Discussed with RN
Allergic reaction:
Likely due to cefazolin
Persistent eosinophilia with peak of 12.5% eosinophils today
Chronic DVT, right lower extremity (untreated):
Hematology consult recommended against full anticoagulation and monitor
Heparin drip discontinued
On Lovenox 40 mg daily
Monitor hemoglobin
Thrombocytopenia:
Appears to be chronic
Hematology eval
Platelet count 98 today
No active bleeding
Anemia:
Hemoglobin 11 today
Stable
Continue to monitor hemoglobin on anticoagulant
Hemorrhoidal bleed:
Monitor for any worsening
DVT prophylaxis:
Lovenox SQ
CODE STATUS:
Full code
Time spent 55 minutes
Anticipated Discharge: > 48 hours
Subjective/Interval History
-
Date of Service: November 19, 2023
Patient having rash since last evening and itchy. Erythema and swelling on right lower extremity with serous drainage persists. Afebrile.
Objective Data
-
Labs:
Laboratory Results
11/19/23
06:40
WBC 7.0
Hgb 11.0 L
Hct 33.4 L
Plt Count 98 L
Sodium 134 L
Potassium 3.8
Chloride 108 H
Carbon Dioxide 19 L
BUN 15
Creatinine 0.6 L
Glucose 128 H
Calcium 8.1 L
Vital Signs:
Vital Signs
Temp Pulse Resp BP Pulse Ox
98.3 F 84 18 108/65 97
11/19/23 07:15 11/19/23 07:15 11/19/23 07:15 11/19/23 07:15 11/19/23 07:15
I&O
11/18/23 11/19/23 11/20/23
06:59 06:59 06:59
Intake Total 720 / 720 1030 / 1030
Balance 720 / 720 1030 / 1030
[2023-11-19] MEDS: FEOSOL 325 MG PO (09:22)
[2023-11-19] MEDS: HYDROPHOR 1 APPLIC TOPICAL (09:22)
[2023-11-19] MEDS: BENADRYL 25 MG PO ×2 (09:35→21:34)
--- NOTE | 2023-11-19 13:17 | CON.ID ---
Addendum entered and electronically signed by Kymberly Acuña MD 11/19/23 14:20:
note director of land acquisition ipad was used with director of land acquisition jodi [id number]
Original Note:
Consultation
-
Date/Time Consultation Requested: 11/19/23 9:39
Date/Time Consultation Performed: 11/19/23 13:17
Requesting Provider: Dr Snyder
Performing Provider: Dr Acuña
Reason for Consultation: Right lower extremity increased erythema, pain, weeping
Chief Complaint / Past History
Chief Complaint
Right lower extremity increased erythema, pain, weeping
History of Present Illness
Mr Manriquez is a 68 year old male with recent history of DVT, he has had difficulty accessing medical care due to his insurance status and has not been on treatment, he now presents for increasing swelling, pain, edema with weaping from the leg. Of
note patient three affiliated to [facility]. Not known to have asthma.
Since arrival here he has been afebrile, bp stable,wbc initially 5.6 now 7.0, hgb 11, plt 98, he has eosinophilia with AEC 840 today previously running around 400, cr 0.6, glucose 100-200, lactic acid 1.7, t bili 1.4, ast 39, lat 37, alk pohs 198,
Xray of the foot: no evidence of osetomyelitis, mrsa screen negative, a single blood culture is no growth at 72 hours. He was started on cefazolin for possible suprainfection, however developed a rash. ID is consulted for assistance with
management.
Past History
Additional Past Medical History:
none known, doesnt typically follow with MD
Past Surgical History: None
Allergy History:
No Known Allergies Allergy (Verified 11/15/23 16:08)
Medications Reviewed: Yes
Social History
Tobacco: Former Smoker
Alcohol: None
Family History
Family History: Not Pertinent
Review of Systems
Review of Systems
General: Negative Fever or Chills
All systems: All other systems were reviewed and were negative
Vital Signs
Temp Pulse Resp BP Pulse Ox
98.3 F 84 18 108/65 97
11/19/23 07:15 11/19/23 07:15 11/19/23 07:15 11/19/23 07:15 11/19/23 08:00
Physical Exam
Physical Exam
Constitutional: No Acute Distress
Cardiovascular: Regular Rate and S1/S2; Negative Murmur or Rub
Pulmonary: Clear and Symmetric; Negative Wheezes, Rales or Rhonchi
Gastrointestinal: Soft, Non Tender, Non Distended and Normal Bowel Sounds
Skin: Warm, Dry and Rash (extensive swelling, erythema, warmth of the right lower extremity; superficial abrasions with serous drainage. There is extensive pruritic rash across the entire body); Negative Jaundice
Neurological: Awake
Lab / Diagnostic Study Results
11/19/23 06:40
11/19/23 06:40
Abs Immat Gran (auto) 0.0 10^3/uL (0-0.05) 11/19/23 06:40
Absolute Neuts (auto) 3.7 10^3/uL (1.4-6.5) 11/19/23 06:40
Absolute Lymphs (auto) 1.8 10^3/uL (1.2-3.4) 11/19/23 06:40
Absolute Monos (auto) 0.6 10^3/uL (0.1-0.6) 11/19/23 06:40
Absolute Basos (auto) 0.0 10^3/uL (0-0.2) 11/19/23 06:40
Immature Gran % 0.3 % (0-0.5) 11/19/23 06:40
Neutrophils % 53.2 % (42.2-75.2) 11/19/23 06:40
Lymphocytes % 25.7 % (20.5-51.1) 11/19/23 06:40
Monocytes % 8.2 % (1.7-9.3) 11/19/23 06:40
Eosinophils % 12.5 % (0-6) H 11/19/23 06:40
Basophils % 0.1 % (0-2) 11/19/23 06:40
PT 16.1 Sec (11.4-14.6) H 11/15/23 19:23
INR 1.31 11/15/23 19:23
Lactic Acid 1.7 mmol/L (0.7-2.0) 11/15/23 16:21
Microbiology Results
Micro:
11/15/23 16:21 Blood Culture - Preliminary
Blood/Venous No Growth in 72 hours- Final report to follow
11/16/23 03:12 MRSA Screen - Final
Nose No Methicillin Resistant Staphylococcus aureus isolated.
Assessment / Plan
Cellulitis - nonpurulent
Suspected Drug Rash
Eosinophilia
DVT - unprovoked
Hyperglycemic
Chronic Thrombocytopenia
- single blood culture done and no growth to date; patient remains afebrile, with possible cellulitis, low probability of bacteremia, no need to send a second set at this time
- note increased eosinophilia from his baseline on arrival for AEC around 400 now up to 800; note it was normal two months ago. Elevation now could be due to persistent cellulitis or another infection.
- continue to follow CBC with differential, may consider additional studies if not normalizing with treatment of cellulitis and cessation of cefazolin
- also check a1c
- start vancomycin; cefazolin has been stopped
- elevation as tolerated, he doesnt think he would tolerate compression
- no objection to iron supplementation from ID perspective
[2023-11-19] MEDS: TYLENOL 650 MG PO (14:18)
--- NOTE | 2023-11-19 14:21 | W.PN.ONC ---
Today's Communication / Plan
-
Cellulitis seems somewhat refractory. His right thigh still seems more swollen than I would anticipate. Unexplained iron deficiency. Will image abdomen and pelvis to look for possible etiology.
Impression
Impression
Cellulitis right lower extremity
Thrombosis right peroneal vein, possibly chronic
Unexplained iron deficiency anemia
Mild thrombocytopenia
Plan
Plan
Antibiotics as per primary service. By the reading of the most recent venous Doppler, he does not require full dose anticoagulation. Even the prior venous Doppler showed clot only below the knee, and as such monitoring as opposed to full dose
anticoagulation would be an option.
Will hold off on IV iron, some potential risk given acute infection.
Will eventually need GI evaluation.
I am concerned that he has some swelling and pain in his thigh area on the right, which seems a little distant from his acute cellulitis. He may need imaging of the abdomen, pelvis, and thigh.
Regarding his thrombocytopenia, would recommend monitoring for now. This could conceivably be due to the infection. He should be started on oral iron.
Subjective/Objective
Subjective/Objective
He is feeling about the same. He reports no new symptoms. Examination shows the entire right lower extremity to be somewhat edematous and erythematous, very dark below the knee.
Vital Signs:
Vital Signs
Temp Pulse Resp BP Pulse Ox
98.3 F 84 18 108/65 97
11/19/23 07:15 11/19/23 07:15 11/19/23 07:15 11/19/23 07:15 11/19/23 08:00
Lab Results:
Laboratory Data
WBC 7.0 10^3/uL (4.8-10.8) 11/19/23 06:40
Hgb 11.0 g/dL (13.0-18.0) L 11/19/23 06:40
Plt Count 98 10^3/uL (130-400) L 11/19/23 06:40
PT 16.1 Sec (11.4-14.6) H 11/15/23 19:23
INR 1.31 11/15/23 19:23
APTT Cancelled 11/16/23 19:25
eGFR > 60.00 11/19/23 06:40
Orders
Orders
Orders From Last 24 Hours
11/19/23 14:21
CT Abd/pelvis Wo Iv Cont Routine
--- NOTE | 2023-11-19 14:36 | WOUNDNOTE ---
R FOOT (photo taken by DENISE Calhoun).
--- NOTE | 2023-11-19 14:37 | WOUNDNOTE ---
GÉNESIS (photo taken by DENISE Calhoun).
--- NOTE | 2023-11-19 14:38 | WOUNDNOTE ---
R FOOT/ANKLE (photo taken by DENISE Calhoun)
[2023-11-19] MEDS: VANCOCIN 300 ML IV (15:52)
[2023-11-19] MEDS: VANCOCIN 300 MG IV (15:52)
--- NOTE | 2023-11-19 15:52 | PHA.VAN.IN ---
Assessment
- Assessment
Renal Function: Unknown baseline
Maximum Temperature: 98.7
AUC Dosing Plan
- Dosing Variables
Dosing Weight (kg): 61.9
Dosing CrCl (ml/min): 81
Vd coefficient (L/kg): 0.7
- Empiric Dosing
Initial / Loading Dose: 1500 mg (25 mg/kg) -pending administration
Maintenance Regimen: vanc 750 mg q12h
Estimated AUC (mcg*h/mL): 518
Estimated Peak (mcg*h/mL): 30
Estimated Trough (mcg/ml): 14.7
Estimated Half Life (H): 9.7
- Monitoring
No levels ordered at this time: consider in the upcoming days
Pharmacokinetics Vancomycin I
- -
Patient Age: 68
Patient Sex: Male
Vancomycin Day #: 1
Indication: Skin And Soft Tissue
Requesting Provider: Dr Acuña
Pertinent Antimicrobial Allergies:
no known allergies
Height / Weight:
Height 5 ft
Actual Weight 61.915 kg
- Vital Signs / Lab Results
Temp Pulse Resp BP Pulse Ox
98.3 F 84 18 108/65 97
11/19/23 07:15 11/19/23 07:15 11/19/23 07:15 11/19/23 07:15 11/19/23 08:00
Lab Results - Hematology
11/17/23 11/19/23
06:36 06:40
WBC 4.8 7.0
Lab Results - Chemistry
11/17/23 11/19/23
06:36 06:40
BUN 19 15
Creatinine 0.6 L 0.6 L
Estimated Creat Clear 81 81
Microbiology Results
11/15/23 16:21 Blood Culture - Preliminary
Blood/Venous No Growth in 72 hours- Final report to follow
[2023-11-19 15:55] VITALS: BP 101/58
[2023-11-19] MEDS: LOVENOX 40 MG SC (17:00)
[2023-11-19 23:17] VITALS: BP 111/64
[2023-11-20] MEDS: VANCOCIN 150 IV ×2 (05:49→17:18)
[2023-11-20 06:49] LABS: % Basophils 0.2 % (0-2); % Eosinophils 16.6 % (0-6); % Immature Granulocytes 0.5 % (0-0.5); % Lymphocytes 26.2 % (20.5-51.1); % Monocytes 7.1 % (1.7-9.3); % Neutrophils 49.4 % (42.2-75.2); Absolute Eosinophils 1.5 10^3/uL (0-0.7); Absolute Immature Granulocytes 0.1 10^3/uL (0-0.05); Absolute Lymphocytes 2.4 10^3/uL (1.2-3.4); Absolute Monocytes 0.7 10^3/uL (0.1-0.6); Absolute Neutrophils 4.5 10^3/uL (1.4-6.5); Hematocrit 34.5 % (39.0-52.0); Hemoglobin 10.9 g/dL (13.0-18.0); Mean Corp Hgb Conc. 31.6 g/dL (33.0-37.0); Mean Corpuscular Hgb 24.9 pg (27.0-31.0); Mean Corpuscular Volume 78.9 fL (80.0-94.0); Mean Platelet Volume 10.1 fL (7.4-10.4); Nucleated Red Blood Cells % 0 % (-); Platelet Count 93 10^3/uL (130-400); Red Blood Cell Count 4.37 10^6/uL (4.70-6.10); Red Cell Dist. Width 16.3 % (11.5-14.5); White Blood Cell Count 9.2 10^3/uL (4.8-10.8)
[2023-11-20 07:05] LABS: Blood Urea Nitrogen 20 mg/dl (9-20); Calcium 7.9 mg/dl (8.4-10.2); Carbon Dioxide 19 mmol/L (22-30); Chloride 105 mmol/L (98-107); Estimated Creatinine Clearance 69 ml/min; Glucose 123 mg/dl (70-99); Potassium 3.8 mmol/L (3.5-5.1); Sodium 133 mmol/L (135-145); eGFR > 60.00
[2023-11-20 07:35] VITALS: BP 111/62
[2023-11-20] MEDS: FEOSOL 325 MG PO (08:21)
[2023-11-20] MEDS: HYDROPHOR 1 APPLIC TOPICAL (08:21)
[2023-11-20 09:24] LABS: Glycohemoglobin (HgbA1c) 6.3 % (4.0-5.6)
--- NOTE | 2023-11-20 09:43 | W.PN.HOSP.TC ---
Today's Communication/Plan
-
IV antibiotics. GI consult
Assessment / Plan
Assessment / Plan
Physical exam:
General: Acutely ill
HEENT: Normocephalic, Atraumatic and Moist Mucous Membranes
Respiratory: Clear to Auscultation; Negative Wheezes, Rales or Rhonchi
Cardiac: Regular Rhythm and S1/S2
GI: Soft, Nontender and Nondistended
Musculoskeletal: Right lower extremity erythema. Wounds in the tibia and foot area. No Clubbing, No Cyanosis
Neuro: Awake, Alert and Oriented
Psych: Calm
A/P:
Right lower extremity cellulitis:
Continue IV vancomycin
Discontinued cefazolin due to allergic reaction.
ID consult appreciated
Elevate lower extremity
Would consult appreciated
X-ray unremarkable for bony involvement
PT OT eval
WBC 9.2
Discussed with RN
Allergic reaction:
Likely due to cefazolin
Persistent eosinophilia with peak of 16.6% eosinophils today--> allergic reaction likely contributing but might need to rule out other processes that can contribute to eosinophilia as well.
Chronic DVT, right lower extremity (untreated):
Hematology consult recommended against full anticoagulation and monitor.
Hematology did a CT of the abdomen as part of the workup and abnormal findings consistent with likely liver cirrhosis and portal hypertension--> will request GI consultation for further evaluation in the setting of findings of portal hypertension
and cirrhosis and iron deficiency anemia.
Heparin drip discontinued
On Lovenox 40 mg daily
Monitor hemoglobin
Thrombocytopenia:
Appears to be chronic but could be related to liver disease
Hematology eval appreciated
Platelet count 93 today
No active bleeding
Iron deficiency anemia:
GI eval
Hematology input appreciated
Hemoglobin 10.9 today
Continue to monitor hemoglobin on anticoagulant
Hemorrhoidal bleed:
Monitor for any worsening
DVT prophylaxis:
Lovenox SQ
CODE STATUS:
Full code
Time spent 55 minutes
Anticipated Discharge: 24 - 48 hours
Subjective/Interval History
-
Date of Service: November 20, 2023
Patient still has significant edema and erythema in right lower extremity along with serous drainage. Rash improving. No chest pain or shortness of breath or abdominal pain.
Objective Data
-
Labs:
Laboratory Results
11/20/23
05:45
WBC 9.2
Hgb 10.9 L
Hct 34.5 L
Plt Count 93 L
Sodium 133 L
Potassium 3.8
Chloride 105
Carbon Dioxide 19 L
BUN 20
Creatinine 0.7
Glucose 123 H
Calcium 7.9 L
Vital Signs:
Vital Signs
Temp Pulse Resp BP Pulse Ox
98.9 F 79 18 111/62 97
11/20/23 07:35 11/20/23 07:35 11/20/23 07:35 11/20/23 07:35 11/20/23 07:35
I&O
11/19/23 11/20/23 11/21/23
06:59 06:59 06:59
Intake Total 1030 / 1030 1500 / 1500
Balance 1030 / 1030 1500 / 1500
--- NOTE | 2023-11-20 10:21 | PHA.VAN.FU ---
Vancomycin Assessment / Plan
- Assessment
Renal Function: SCR Increasing (0.6>0.7)
WBC's are: Trending Up (7.0>9.2)
In the past 24 hrs, patient has been: Afebrile
- Dosing Plan
Continue: Vancomycin 750mg IV Q12hr
- Monitoring Plan
No level(s) ordered at this time: Will order levels for 11/21/23 at 20:30 if remains on IV vancomycin
- Follow Up
Pharmacy will continue to follow.
Vancomycin Follow UP
- -
Patient Age: 68
Patient Sex: Male
Vancomycin Day #: 2
Indication: Skin And Soft Tissue
Requesting Provider: Dr Acuña
Pertinent Antimicrobial Allergies:
no known allergies
Height / Weight:
Height 5 ft
Actual Weight 61.915 kg
Pertinent Past Medical History: RLE cellulits and Chronic Nonocclusive DVT R PERINEAL VEIN w/in past month
- Vital Signs / Lab Results
Temp Pulse Resp BP Pulse Ox
98.9 F 79 18 111/62 97
11/20/23 07:35 11/20/23 07:35 11/20/23 07:35 11/20/23 07:35 11/20/23 07:35
Lab Results - Hematology
11/19/23 11/20/23
06:40 05:45
WBC 7.0 9.2
Lab Results - Chemistry
11/19/23 11/20/23
06:40 05:45
BUN 15 20
Creatinine 0.6 L 0.7
Estimated Creat Clear 81 69
Microbiology Results
11/15/23 16:21 Blood Culture - Preliminary
Blood/Venous No Growth in 4 days- Final report to follow
--- NOTE | 2023-11-20 12:08 | W.PN.ID1 ---
Date of Service
Date of Service: November 20, 2023
Today's Communication
continue vancomycin
Follow eosinophilia/drug rash - expect it to begin to resolve with cessation of cefazolin, treatment of infection. PRN benadryl
elevation 3 pillows - management of edema will resolve the drainage and allow for healing of the wounds.
Assessment / Plan
Cellulitis - nonpurulent
Suspected Drug Rash
Eosinophilia - radha
DVT - unprovoked
Prediabetic
Chronic Thrombocytopenia
- note further increased eosinophilia. Two months ago it was normal, on arrivlal AEC around 400 now up to 1500. Elevation now could be due to persistent cellulitis or another infection, drug reaction, less likely hematologic disorder. Suspect its
a combination of subacute/chronic cellulitis and ADR to cefazolin.
- continue to follow CBC with differential, I may consider additional studies if eosinophilia not normalizing with treatment of cellulitis and cessation of cefazolin
- single blood culture done and no growth to date
- prediabetic - outpatient follow up
- CT a/p cirrhotic liver morphology, splenomegaly, mild ascites noted
- management per IM service
- continue vancomycin
- PRN benadryl available - patient can take as needed for pruritus
- hemosiderin deposition will likely cause chronic discoloration of the leg
- elevation of leg, he doesnt think he would tolerate compression right now; edema is notably improved today compared to yesterday
- complains that the dressings are making his leg hot and uncomfortable
- for the weekend, keep the leg elevated (3 pillows) - resolution of edema will resolve the drainage and allow for healing
- clean wounds with saline once daily for the weekend
- daily reassessment
- no objection to iron supplementation from ID perspective
- follow clinically
Chief Complaint
-: Cellulitis and Other (adverse drug reaction)
Subjective / Review of Systems
afebrile
bp stable
without leukocytosis
further progression of eosinophilia with aec up to [address] a/p: possible cirrhosis, lfts normal, plt are low, PTT was a bit elevated
Vital Signs / Physical Exam
Vital Signs
Vital Signs
Temp Pulse Resp BP Pulse Ox
98.9 F 79 18 111/62 97
11/20/23 07:35 11/20/23 07:35 11/20/23 07:35 11/20/23 07:35 11/20/23 07:35
Physical Exam
Constitutional: No Acute Distress
Cardiovascular: Regular Rate and S1/S2; Negative Murmur or Rub
Pulmonary: Clear and Symmetric; Negative Wheezes or Rales
Gastrointestinal: Soft, Non Tender, Non Distended and Normal Bowel Sounds
Skin: Warm and Dry; Negative Rash or Jaundice
Wound: Other (few scattered abrasions with mild/moderate serous drainage, notably improved edema, )
Objective Data
Lab Data
Lab Results
11/20/23 05:45
11/20/23 05:45
PT 16.1 Sec (11.4-14.6) H 11/15/23 19:23
INR 1.31 11/15/23 19:23
APTT Cancelled 11/16/23 19:25
Estimated Creat Clear 69 ml/min 11/20/23 05:45
Lactic Acid 1.7 mmol/L (0.7-2.0) 11/15/23 16:21
Total Bilirubin 1.4 mg/dl (0.2-1.3) H 11/15/23 16:21
AST 39 U/L (17-59) 11/15/23 16:21
ALT 37 U/L (0-50) 11/15/23 16:21
Alkaline Phosphatase 198 U/L (38-126) H 11/15/23 16:21
Most recent labs reviewed.
Micro Results:
11/15/23 16:21 Blood Culture - Preliminary
Blood/Venous No Growth in 4 days- Final report to follow
11/16/23 03:12 MRSA Screen - Final
Nose No Methicillin Resistant Staphylococcus aureus isolated.
Care Review
Plan reviewed with: Nurse (wound care)
--- NOTE | 2023-11-20 14:41 | CON.GI ---
Addendum entered and electronically signed by Barbara Clark MD 11/21/23 09:24:
Error in the H/P-Patient currently not on coumadin for anti coagulation, only on SQ Lovenox.
No plans for AC due to the chronicity of the thrombus per oncology
Original Note:
Consultation
-
Date/Time Consultation Requested: 11/20/2023
Date/Time Consultation Performed: 11/20/2023
Requesting Provider:
Performing Provider: Dr. Clark
Reason for Consultation: Microcytic anemia and cirrhosis noted on imaging
Medical History
Chief Complaint / HPI
Chief Complaint: Right leg pain
History of Present Illness:
68-year-old Citizen Of [place] speaking male seen for iron deficiency anemia and cirrhosis noted on imaging. History obtained through site interpreter.
Patient presented to the emergency room with right lower quadrant swelling and also losing of fluid from the leg. Diagnosed with DVT 10/17/2023, started on Lovenox and Coumadin, could not continue the Coumadin due to insurance issues. In the
emergency room, he was noted to have hemoglobin of 10.1 with MCV of 79.3. Hemoglobin in September 2023 was 9.2. Platelets between 80 and 90 range. INR of 1.3. Iron deficiency indices, mildly elevated total bilirubin of 1.4, AST and ALT are normal,
alkaline phosphatase of 198. He had CT scan of the abdomen and pelvis without contrast that showed cirrhotic morphology of the liver and GI consult was called in.
He denies any abdominal pain, nausea or vomiting. No heartburn, regurgitation, trouble swallowing. No constipation, diarrhea, blood in the stool or black stool. No loss of appetite or unintentional weight loss or NSAID use. Never had an upper
endoscopy or colonoscopy. No history of jaundice or hepatitis. No family history of colon cancer or liver disease. No known history of anemia.
Past Medical History
Past Medical History: Other (DVT)
Past Surgical History: None
Social History
Tobacco: Former Smoker
Alcohol: Other (Reports not drinking alcohol in 20 years but ER records say once every 3 months)
Drug: None
Family History
Family History: Reviewed & Not Pertinent
Allergies / Home Medications
Allergy/AdvReac Type Severity Reaction Status Date / Time
No Known Allergies Allergy Verified 11/15/23 16:08
�Medication �Instructions �Recorded
No Meds [No Current Medications] 11/15/23
Review of Systems
-
All other systems: A 12 pt ROS was Negative except as stated above in HPI
Vital Signs
Temp Pulse Resp BP Pulse Ox
98.9 F 79 18 111/62 97
11/20/23 07:35 11/20/23 07:35 11/20/23 07:35 11/20/23 07:35 11/20/23 07:35
Physical Exam
Exam
General: Well Developed and Well Nourished
Respiratory: Clear
Cardiac: S1/S2 and Regular Rhythm
GI: Soft, Non Tender, Non Distended and Normal Bowel Sounds
Musculoskeletal: Other (Cellulitis of the right lower extremity with edema)
Neuro: AO x 3
Results
WBC 9.2 10^3/uL (4.8-10.8) 11/20/23 05:45
Hgb 10.9 g/dL (13.0-18.0) L 11/20/23 05:45
Hct 34.5 % (39.0-52.0) L 11/20/23 05:45
MCV 78.9 fL (80.0-94.0) L 11/20/23 05:45
Plt Count 93 10^3/uL (130-400) L 11/20/23 05:45
Absolute Neuts (auto) 4.5 10^3/uL (1.4-6.5) 11/20/23 05:45
PT 16.1 Sec (11.4-14.6) H 11/15/23 19:23
INR 1.31 11/15/23 19:23
APTT Cancelled 11/16/23 19:25
Sodium 133 mmol/L (135-145) L 11/20/23 05:45
Potassium 3.8 mmol/L (3.5-5.1) 11/20/23 05:45
Chloride 105 mmol/L (98-107) 11/20/23 05:45
Carbon Dioxide 19 mmol/L (22-30) L 11/20/23 05:45
BUN 20 mg/dl (9-20) 11/20/23 05:45
Creatinine 0.7 mg/dL (0.7-1.3) 11/20/23 05:45
Calcium 7.9 mg/dl (8.4-10.2) L 11/20/23 05:45
Total Bilirubin 1.4 mg/dl (0.2-1.3) H 11/15/23 16:21
AST 39 U/L (17-59) 11/15/23 16:21
ALT 37 U/L (0-50) 11/15/23 16:21
Alkaline Phosphatase 198 U/L (38-126) H 11/15/23 16:21
Diagnostic Image Results:
Prior GI Procedures:
EGD:
Colonoscopy:
Assessment / Plan
-
68-year-old Citizen Of [place] speaking male with history of DVT, noncompliant with Coumadin presenting with increased lower extremity swelling, pain and seeping of fluid. Noted to have iron deficiency anemia and also cirrhosis noted on CT scan and GI consult
called in. No GI symptoms at this time.
-Iron deficiency anemia, no overt GI bleeding
Rule out ulcer disease, H. pylori, esophagitis, gastritis, colon polyps versus other
Will check occult blood in the stool
Normal vitamin B12 and folate levels.
Will need upper endoscopy and colonoscopy but will need to check with medical team regarding if he can safely hold the Coumadin to do the procedures.
No urgency for endoscopy evaluation given no overt bleeding. If Coumadin cannot be held for 3 to 6 months, we can do endoscopy evaluation as outpatient as well.
Start PPI-Protonix 40 mg p.o. daily
-Cirrhosis of unclear etiology.
Patient denies history of alcohol abuse and reports minimal alcohol use
Will check abdominal ultrasound to evaluate the liver better
Will check hepatitis serologies, celiac panel, SAM, AMA, ASMA, ceruloplasmin, alpha-1 antitrypsin and alpha-fetoprotein level
2 g sodium diet
Will follow-up on the above testing
-
-
Thank you for consultation and allowing me to participate in the patient's care. Please call the [facility] GI physician during the after hours with any questions or concerns.
[2023-11-20 15:38] VITALS: BP 109/59
[2023-11-20] MEDS: LOVENOX 40 MG SC (17:20)
[2023-11-20 23:30] VITALS: BP 114/62
[2023-11-21] MEDS: VANCOCIN 150 IV ×2 (05:19→17:15)
[2023-11-21 07:03] LABS: PT 17.3 Sec (11.4-14.6)
[2023-11-21 07:05] VITALS: BP 113/61
[2023-11-21 07:18] LABS: % Basophils 0.2 % (0-2); % Eosinophils 22.9 % (0-6); % Lymphocytes 22.6 % (20.5-51.1); % Monocytes 6.2 % (1.7-9.3); % Neutrophils 47.1 % (42.2-75.2); Absolute Eosinophils 3.2 10^3/uL (0-0.7); Absolute Immature Granulocytes 0.1 10^3/uL (0-0.05); Absolute Lymphocytes 3.2 10^3/uL (1.2-3.4); Absolute Monocytes 0.9 10^3/uL (0.1-0.6); Absolute Neutrophils 6.6 10^3/uL (1.4-6.5); Hematocrit 33.7 % (39.0-52.0); Hemoglobin 11.1 g/dL (13.0-18.0); Mean Corp Hgb Conc. 32.9 g/dL (33.0-37.0); Mean Corpuscular Hgb 25.5 pg (27.0-31.0); Mean Corpuscular Volume 77.3 fL (80.0-94.0); Mean Platelet Volume 10.6 fL (7.4-10.4); Nucleated Red Blood Cells % 0 % (-); Platelet Count 110 10^3/uL (130-400); Red Blood Cell Count 4.36 10^6/uL (4.70-6.10); Red Cell Dist. Width 16.7 % (11.5-14.5)
[2023-11-21 07:21] LABS: ALT (SGPT) 22 U/L (0-50); AST (SGOT) 34 U/L (17-59); Albumin 2.7 g/dl (3.5-5.0); Alkaline Phosphatase 244 U/L (38-126); Blood Urea Nitrogen 18 mg/dl (9-20); Calcium 7.8 mg/dl (8.4-10.2); Carbon Dioxide 19 mmol/L (22-30); Chloride 104 mmol/L (98-107); Estimated Creatinine Clearance 69 ml/min; Glucose 118 mg/dl (70-99); Potassium 3.5 mmol/L (3.5-5.1); Sodium 131 mmol/L (135-145); Total Bilirubin 1.4 mg/dl (0.2-1.3); Total Protein 6.2 g/dl (6.3-8.2); eGFR > 60.00
[2023-11-21] MEDS: HYDROPHOR 1 APPLIC TOPICAL (08:11)
--- NOTE | 2023-11-21 08:37 | PHA.VAN.FU ---
Vancomycin Assessment / Plan
- Assessment
Renal Function: Stable (0.7>0.7)
WBC's are: Trending Up (9.2>14)
In the past 24 hrs, patient has been: Afebrile
- Dosing Plan
Continue: Vancomycin 750mg IV Q12hrs
- Monitoring Plan
Peak Level: Ordered for 11/21/23 at 20:30
Trough Level: Ordered for 11/22/23 at 05:30
- Follow Up
Pharmacy will continue to follow.
Vancomycin Follow UP
- -
Patient Age: 68
Patient Sex: Male
Vancomycin Day #: 3
Indication: Skin And Soft Tissue
Requesting Provider: Dr Acuña
Pertinent Antimicrobial Allergies:
no known allergies
Height / Weight:
Height 5 ft
Actual Weight 61.915 kg
Pertinent Past Medical History: RLE cellulits and Chronic Nonocclusive DVT R PERINEAL VEIN w/in past month
- Vital Signs / Lab Results
Temp Pulse Resp BP Pulse Ox
98.8 F 83 14 113/61 97
11/21/23 07:05 11/21/23 07:05 11/21/23 07:05 11/21/23 07:05 11/21/23 07:05
Lab Results - Hematology
11/19/23 11/20/23 11/21/23
06:40 05:45 05:32
WBC 7.0 9.2 14.0 H
Lab Results - Chemistry
11/19/23 11/20/23 11/21/23
06:40 05:45 05:32
BUN 15 20 18
Creatinine 0.6 L 0.7 0.7
Estimated Creat Clear 81 69 69
Albumin 2.7 L
Microbiology Results
11/15/23 16:21 Blood Culture - Final
Blood/Venous No Growth - Final Report
--- NOTE | 2023-11-21 08:37 | W.PN.HOSP.TC ---
Addendum entered and electronically signed by Elliot Snyder MD 11/21/23 14:26:
Discussed with ID and will change Protonix to IV twice a day for now and will do an ultrasound of his abdomen.
Addendum entered and electronically signed by Elliot Snyder MD 11/21/23 12:43:
Hold Lovenox since GI planning EGD tomorrow.
Original Note:
Today's Communication/Plan
-
IV antibiotics. GI eval ongoing.
Assessment / Plan
Assessment / Plan
Physical exam:
General: Acutely ill
HEENT: Normocephalic, Atraumatic and Moist Mucous Membranes
Respiratory: Clear to Auscultation; Negative Wheezes, Rales or Rhonchi
Cardiac: Regular Rhythm and S1/S2
GI: Soft, Nontender and Nondistended
Musculoskeletal: Right lower extremity erythema. Wounds in the tibia and foot area. No Clubbing, No Cyanosis
Neuro: Awake, Alert and Oriented
Psych: Calm
A/P:
Right lower extremity cellulitis:
Continue IV vancomycin
Discontinued cefazolin due to allergic reaction.
ID consult appreciated
Elevate lower extremity
Would consult appreciated
X-ray unremarkable for bony involvement
PT OT eval
WBC 14 today
Drug allergic reaction:
Likely due to cefazolin
Persistent eosinophilia with peak of 22.9 % eosinophils today--> allergic reaction likely contributing but might need to rule out other infiltrating processes that can contribute to eosinophilia as well.
Chronic DVT, right lower extremity (untreated):
Hematology consult recommended against full anticoagulation and monitor.
Hematology did a CT of the abdomen as part of the workup and abnormal findings consistent with likely liver cirrhosis and portal hypertension--> will request GI consultation for further evaluation in the setting of findings of portal hypertension
and cirrhosis and iron deficiency anemia.
Heparin drip discontinued
On Lovenox 40 mg daily
Monitor hemoglobin
Cirrhosis of unclear etiology:
Reviewed CT scan of the abdomen
GI consulted
Not excessive alcohol intake
Plan for ultrasound abdomen dedicated to liver
Checking hepatitis serology, autoimmune workup, celiac panel, SAM, AMA, ASMA, ceruloplasmin, alpha-1 antitrypsin and alpha-fetoprotein level, rest of workup per GI
Change diet to 2 g sodium
Thrombocytopenia:
Appears to be chronic but could be related to liver disease
Hematology eval appreciated
Platelet count 93 today
No active bleeding
Iron deficiency anemia:
GI eval appreciated
Start oral Protonix
Hematology input appreciated
Hemoglobin 11.1 today
Continue to monitor hemoglobin
Defer to GI as of timing for endoscopy/colonoscopy.
DVT prophylaxis:
Lovenox SQ
CODE STATUS:
Full code
Time spent 55 minutes
Anticipated Discharge: > 48 hours
Subjective/Interval History
-
Date of Service: November 21, 2023
Patient describes discomfort in right lower extremity but overall improving. No chest pain or shortness of breath.
Objective Data
-
Labs:
Laboratory Results
11/21/23
05:32
WBC 14.0 H
Hgb 11.1 L
Hct 33.7 L
Plt Count 110 L
PT 17.3 H
INR 1.40
Sodium 131 L
Potassium 3.5
Chloride 104
Carbon Dioxide 19 L
BUN 18
Creatinine 0.7
Glucose 118 H
Calcium 7.8 L
Total Bilirubin 1.4 H
AST 34
ALT 22
Alkaline Phosphatase 244 H
Vital Signs:
Vital Signs
Temp Pulse Resp BP Pulse Ox
98.8 F 83 14 113/61 97
11/21/23 07:05 11/21/23 07:05 11/21/23 07:05 11/21/23 07:05 11/21/23 07:05
I&O
11/20/23 11/21/23 11/22/23
06:59 06:59 06:59
Intake Total 1500 / 1500 960 / 960
Balance 1500 / 1500 960 / 960
--- NOTE | 2023-11-21 09:17 | CM ---
CM continues to follow for discharge planning to home. Festus has participated with PT until yesterday when he declined participation.
Medical work up still in progress.
CM to continue to follow for discharge to home with OP follow up at [facility] to which he is known.
PCP: Uses [facility]
Pharmacy: [facility]
[2023-11-21] MEDS: FEOSOL 325 MG PO (11:01)
--- NOTE | 2023-11-21 12:35 | W.PN.GI.CBS2 ---
Today's Communication / Plan
-
-Iron deficiency anemia, no overt GI bleeding
Rule out ulcer disease, H. pylori, esophagitis, gastritis, colon polyps versus other
Will check occult blood in the stool
Normal vitamin B12 and folate levels.
Patient currently not on anticoagulation, Will do upper endoscopy tomorrow followed by colonoscopy to evaluate iron deficiency anemia.
-Protonix 40 mg p.o. daily
Hold Lovenox subcu tonight
-Cirrhosis of unclear etiology.
Patient denies history of alcohol abuse and reports minimal alcohol use
abdominal ultrasound/doppler pending
Await hepatitis serologies, celiac panel, SAM, AMA, ASMA, ceruloplasmin, alpha-1 antitrypsin and alpha-fetoprotein level
2 g sodium diet
Will follow-up on the above testing
Assessment / Plan
-
68-year-old [place] speaking male with history of DVT, noncompliant with Coumadin presenting with increased lower extremity swelling, pain and seeping of fluid. Noted to have iron deficiency anemia and also cirrhosis noted on CT scan and GI consult
called in. No GI symptoms at this time.
-Iron deficiency anemia, no overt GI bleeding
Rule out ulcer disease, H. pylori, esophagitis, gastritis, colon polyps versus other
Will check occult blood in the stool
Normal vitamin B12 and folate levels.
Patient currently not on anticoagulation, Will do upper endoscopy tomorrow followed by colonoscopy to evaluate iron deficiency anemia.
-Protonix 40 mg p.o. daily
Hold Lovenox subcu tonight
-Cirrhosis of unclear etiology.
Patient denies history of alcohol abuse and reports minimal alcohol use
abdominal ultrasound/doppler pending
Await hepatitis serologies, celiac panel, SAM, AMA, ASMA, ceruloplasmin, alpha-1 antitrypsin and alpha-fetoprotein level
2 g sodium diet
Will follow-up on the above testing
Subjective
Subjective
Date of Service: November 21, 2023
Patient reports abdominal discomfort which is going on for 8 to 10 days, today feels okay. No nausea or vomiting.. Tolerating diet
Objective
Data Reviewed
Laboratory Data:
Laboratory Results
11/21/23 05:32
11/21/23 05:32
Laboratory Results
PT 17.3 Sec (11.4-14.6) H 11/21/23 05:32
INR 1.40 11/21/23 05:32
APTT Cancelled 11/16/23 19:25
Total Bilirubin 1.4 mg/dl (0.2-1.3) H 11/21/23 05:32
AST 34 U/L (17-59) 11/21/23 05:32
ALT 22 U/L (0-50) 11/21/23 05:32
Alkaline Phosphatase 244 U/L (38-126) H 11/21/23 05:32
Vital Signs and I&O:
Vital Signs
Temp Pulse Resp BP Pulse Ox
98.8 F 83 14 113/61 97
11/21/23 07:05 11/21/23 07:05 11/21/23 07:05 11/21/23 07:05 11/21/23 10:44
I&O
11/20/23 11/21/23 11/22/23
06:59 06:59 06:59
Intake Total 1500 / 1500 960 / 960
Balance 1500 / 1500 960 / 960
Physical Exam
Physical Exam
GI: Soft, Non Distended and Non Tender
[2023-11-21] MEDS: PROTONIX 40 MG PO (12:48)
--- NOTE | 2023-11-21 12:59 | W.PN.ID1 ---
Date of Service
Date of Service: November 21, 2023
Today's Communication
- serologies for strongyloides, HIV screen, hep B/C sent; will need to work with lab to arrange stool for O&P x3 tomorrow
- concerned that we may need systemic steroids in the near future, plan empiric ivermectin 12 mcg as pretreatment to prevent hyperinfection syndrome - it is nonformulary - working with pharmacy to see if it is available
scheduled the benadryl
Assessment / Plan
Cellulitis - nonpurulent
Suspected Drug Rash
Eosinophilia - radha, progressing
DVT - unprovoked
Prediabetic
Chronic Thrombocytopenia
- note further increased eosinophilia. Two months ago it was normal, on arrival AEC around 400 now up to 3000. Elevation now could be due to persistent cellulitis or another infection, drug reaction, less likely hematologic disorder. Patient is
[facility] to [facility].
- continue to follow CBC with differential
- serologies for strongyloides, HIV screen, IGRA, hep B/C sent; will need to work with lab to arrange stool for O&P x3 tomorrow
- CXR two view in AM
- concerned that we may need systemic steroids in the near future, plan empiric ivermectin 12 mg as pretreatment to prevent hyperinfection syndrome - it is nonformulary - working with pharmacy to see if it is available
- single blood culture done and no growth to date
- CT a/p cirrhotic liver morphology, splenomegaly, mild ascites noted
- management per IM service
- US abd/pelvis is ordered - complaining of marked abd pain this afternoon which is new US is pending - upgraded to stat; made npo per US request
- continue vancomycin
- scheduled the Benadryl
- hemosiderin deposition will likely cause chronic discoloration of the leg
- elevation of leg, he doesnt think he would tolerate compression right now; edema is notably improved today compared to yesterday
- light dressing, compression
- daily reassessment
- no objection to iron supplementation from ID perspective
- follow clinically
Chief Complaint
-: Cellulitis and Other (adverse drug reaction)
Subjective / Review of Systems
afebrile
bp stable
leukocytosis noted today, no L shift
plt are improving
Eos further increased to AEC of 3000
rash persists
Vital Signs / Physical Exam
Vital Signs
Vital Signs
Temp Pulse Resp BP Pulse Ox
98.8 F 83 14 113/61 97
11/21/23 07:05 11/21/23 07:05 11/21/23 07:05 11/21/23 07:05 11/21/23 10:44
Physical Exam
Constitutional: No Acute Distress and Chronically Ill
Cardiovascular: Regular Rate and S1/S2; Negative Murmur or Rub
Pulmonary: Clear and Symmetric; Negative Wheezes or Rales
Gastrointestinal: Soft, Non Tender, Non Distended and Normal Bowel Sounds
Skin: Warm, Dry and Rash (widespread rash - raised, mildly pruritic, some targetoid lesions, ); Negative Jaundice
Objective Data
Lab Data
Lab Results
11/21/23 05:32
11/21/23 05:32
PT 17.3 Sec (11.4-14.6) H 11/21/23 05:32
INR 1.40 11/21/23 05:32
APTT Cancelled 11/16/23 19:25
Estimated Creat Clear 69 ml/min 11/21/23 05:32
Lactic Acid 1.7 mmol/L (0.7-2.0) 11/15/23 16:21
Total Bilirubin 1.4 mg/dl (0.2-1.3) H 11/21/23 05:32
AST 34 U/L (17-59) 11/21/23 05:32
ALT 22 U/L (0-50) 11/21/23 05:32
Alkaline Phosphatase 244 U/L (38-126) H 11/21/23 05:32
Most recent labs reviewed.
Micro Results:
11/15/23 16:21 Blood Culture - Final
Blood/Venous No Growth - Final Report
11/16/23 03:12 MRSA Screen - Final
Nose No Methicillin Resistant Staphylococcus aureus isolated.
Care Review
Plan reviewed with: Physician (Dr Snyder - etienne, )
[2023-11-21 15:00] VITALS: BP 122/70
[2023-11-21] MEDS: BENADRYL 25 MG PO ×2 (15:05→21:16)
[2023-11-21] MEDS: STROMECTOL 12 MG PO (16:18)
[2023-11-21] MEDS: OMNIPAQUE 50 ML PO (16:19)
[2023-11-21] MEDS: PROTONIX IV 40 MG IV (20:05)
[2023-11-21] MEDS: NSS (PRESERVATIVE FREE) 10 ML IV (20:05)
[2023-11-21 21:07] LABS: Vancomycin Peak 12.4 ug/ml (18-26)
[2023-11-21 23:15] VITALS: BP 125/66
[2023-11-22] VITALS (8 sets, daily range): BP systolic 96–127; BP diastolic 56–69; PULSE 76; O2SAT 99
[2023-11-22 00:12] LABS: IgA 675 mg/dl (70-400)
[2023-11-22] MEDS: BENADRYL 25 MG PO ×3 (06:11→21:38)
[2023-11-22 06:42] LABS: Hematocrit 33.5 % (39.0-52.0); Hemoglobin 11.1 g/dL (13.0-18.0); Mean Corp Hgb Conc. 33.1 g/dL (33.0-37.0); Mean Corpuscular Hgb 25.2 pg (27.0-31.0); Mean Corpuscular Volume 76.1 fL (80.0-94.0); Mean Platelet Volume 9.7 fL (7.4-10.4); Platelet Count 116 10^3/uL (130-400); Red Cell Dist. Width 17.2 % (11.5-14.5); White Blood Cell Count 17.2 10^3/uL (4.8-10.8)
[2023-11-22 06:52] LABS: INR 1.35; PT 16.8 Sec (11.4-14.6)
[2023-11-22 07:02] LABS: Vancomycin Trough 6.9 ug/ml (5-20)
[2023-11-22 07:08] LABS: ALT (SGPT) 25 U/L (0-50); AST (SGOT) 38 U/L (17-59); Albumin 2.8 g/dl (3.5-5.0); Alkaline Phosphatase 258 U/L (38-126); Blood Urea Nitrogen 14 mg/dl (9-20); Carbon Dioxide 19 mmol/L (22-30); Chloride 105 mmol/L (98-107); Estimated Creatinine Clearance 81 ml/min; Glucose 115 mg/dl (70-99); Potassium 3.9 mmol/L (3.5-5.1); Sodium 130 mmol/L (135-145); Total Bilirubin 1.5 mg/dl (0.2-1.3); Total Protein 6.4 g/dl (6.3-8.2); eGFR > 60.00
[2023-11-22] MEDS: VANCOCIN 150 IV (07:13)
[2023-11-22 07:39] LABS: Absolute Neutrophils -Man Diff 9.2 10^3/uL (1.4-6.5); Anisocytosis 1+; Band Neutrophils 0 % (0-3); Eosinophils 24 % (0-6); Hypochromasia 1+; Lymphocytes 16 % (20-51); Monocytes 6 % (2-9); Normal RBC Morphology No; Platelets Checked Yes; Polychromasia 1+; Segmented Neutrophils 54 % (42-75)
[2023-11-22 07:40] LABS: Total Cells Counted 100
--- NOTE | 2023-11-22 07:55 | W.PN.HOSP.TC ---
Today's Communication/Plan
-
Await abdominal ultrasound
Chest x-ray
EGD, colonoscopy
Assessment / Plan
Assessment / Plan
Gen-AAOx3, NAD
HEENT-NC, AT, anicteric, clear oral mm
Neck-supple
CV-reg, no M, +S1/S2
Lungs-clear B/L
Abd-soft, NT, ND
Ext-diffuse right lower extremity edema, hyperpigmentation
Musculoskeletal-no cyanosis, clubbing
Skin-warm and dry, diffuse maculopapular eruption upper and lower extremities, chest, back
Neuro-grossly non-focal
Psych-calm, cooperative
Right lower extremity cellulitis:
Continue IV vancomycin
Discontinued cefazolin due to allergic reaction.
ID consult appreciated
Elevate lower extremity
Would consult appreciated
X-ray unremarkable for bony involvement
PT OT eval
Leukocytosis worsening, eosinophilia noted
Drug allergic reaction: Diffuse maculopapular rash
Likely due to cefazolin
Persistent eosinophilia with peak of 22.9 % eosinophils--> allergic reaction likely contributing but might need to rule out other infiltrating processes that can contribute to eosinophilia as well.
Infectious disease working up for Strongyloides infection
Chronic DVT, right lower extremity (untreated):
Hematology consult recommended against full anticoagulation and monitor.
Hematology did a CT of the abdomen as part of the workup and abnormal findings consistent with likely liver cirrhosis and portal hypertension--> will request GI consultation for further evaluation in the setting of findings of portal hypertension
and cirrhosis and iron deficiency anemia.
Heparin drip discontinued
On Lovenox 40 mg daily
Monitor hemoglobin
Cirrhosis of unclear etiology:
Reviewed CT scan of the abdomen
GI consulted
Not excessive alcohol intake
Plan for ultrasound abdomen dedicated to liver
Checking hepatitis serology, autoimmune workup, celiac panel, SAM, AMA, ASMA, ceruloplasmin, alpha-1 antitrypsin and alpha-fetoprotein level, rest of workup per GI
Change diet to 2 g sodium
Thrombocytopenia:
Appears to be chronic but could be related to liver disease
Hematology eval appreciated
Platelet count 116k today
No active bleeding
Iron deficiency anemia:
GI eval appreciated
Continue Protonix
Hematology input appreciated
Hemoglobin 11.1, stable
Continue to monitor hemoglobin
EGD, colonoscopy today
DVT prophylaxis:
Lovenox SQ
Full code
Updated son at the bedside. 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
Anticipated Discharge: > 48 hours
Subjective/Interval History
-
Date of Service: November 22, 2023
Patient seen and examined. Son at bedside, assisting with translation. Denies pruritus. Some right lower extremity pain.
Objective Data
-
Labs:
Laboratory Results
11/22/23 11/22/23
06:28 06:29
WBC 17.2 H
Hgb 11.1 L
Hct 33.5 L
Plt Count 116 L
PT 16.8 H
INR 1.35
Sodium 130 L
Potassium 3.9
Chloride 105
Carbon Dioxide 19 L
BUN 14
Creatinine 0.6 L
Glucose 115 H
Calcium 8.0 L
Total Bilirubin 1.5 H
AST 38
ALT 25
Alkaline Phosphatase 258 H
Vital Signs:
Vital Signs
Temp Pulse Resp BP Pulse Ox
98.0 F 85 20 125/66 99
11/21/23 23:15 11/21/23 23:15 11/21/23 23:15 11/21/23 23:15 11/21/23 23:15
I&O
11/21/23 11/22/23 11/23/23
06:59 06:59 06:59
Intake Total 960 / 960 900 / 900
Balance 960 / 960 900 / 900
Review of Systems
-
Unable to obtain full review of systems at this time due to: Language Barrier
[2023-11-22] MEDS: PROTONIX IV 40 MG IV ×2 (08:00→20:01)
[2023-11-22] MEDS: NSS (PRESERVATIVE FREE) 10 ML IV ×2 (08:00→20:01)
--- NOTE | 2023-11-22 08:18 | PHA.VAN.FU ---
Vancomycin Assessment / Plan
- Assessment
Renal Function: Stable
WBC's are: Trending Up
In the past 24 hrs, patient has been: Afebrile
- Assessment - Therapeutic Drug Monitoring
Extrapolated Cmax (mcg/mL): 14.3
Peak level was drawn: Appropriately (drawn ~2.4H after end of previous infusion)
Extrapolated Cmin (mcg/mL): 7.4
Trough Drawn: Appropriately
Levels were drawn: At steady state (levels drawn after 4th maintenance dose)
Calculated AUC (mcg*h/mL): 253
Calculated ke: 0.0597
Calculated half life (H): 11.6
Calculated Vd (L): 99 (~1.6 L/kg)
Calculated Vanc CL (ml/min): 99
- Dosing Plan
Adjust Regimen to: Vanc 1250mg Q12H starting at 1800
New Regimen Predicts: AUC (440), Peak (24.6), Trough (13.1)
- Monitoring Plan
No level(s) ordered at this time: consider repeat levels in next few days
- Follow Up
Pharmacy will continue to follow.
Vancomycin Follow UP
- -
Patient Age: 68
Patient Sex: Male
Vancomycin Day #: 4
Indication: Skin And Soft Tissue
Requesting Provider: Dr Acuña
Pertinent Antimicrobial Allergies:
NKDA
Height / Weight:
Height 5 ft
Actual Weight 61.915 kg
Pertinent Past Medical History: Cirrhosis
- Vital Signs / Lab Results
Temp Pulse Resp BP Pulse Ox
98.1 F 75 16 126/64 97
11/22/23 07:00 11/22/23 07:00 11/22/23 07:00 11/22/23 07:00 11/22/23 07:00
Lab Results - Hematology
11/20/23 11/21/23 11/22/23
05:45 05:32 06:29
WBC 9.2 14.0 H 17.2 H
Band Neutrophils 0
Lab Results - Chemistry
11/20/23 11/21/23 11/22/23
05:45 05:32 06:29
BUN 20 18 14
Creatinine 0.7 0.7 0.6 L
Estimated Creat Clear 69 69 81
Albumin 2.7 L 2.8 L
Microbiology Results
11/15/23 16:21 Blood Culture - Final
Blood/Venous No Growth - Final Report
Therapeutic Drug Monitoring
Vancomycin Peak 12.4 ug/ml (18-26) L 11/21/23 20:40
Vancomycin Trough 6.9 ug/ml (5-20) 11/22/23 06:29
--- NOTE | 2023-11-22 09:42 | W.PN.ONC2 ---
Addendum entered and electronically signed by SILVIA De Leon 11/22/23 15:50:
Error in documentation: Pt was not seen today, off unit for EGD. Please discard physical exam, ROS, and subjective
Dr. Yao and myself reviewed provider notes, history, labs, and imaging
Acute eosinophilia differential dx include but not limited to persistent cellulitis, other infection, drug reaction, inflammation, or neoplastic disorder -peripheral flow ordered
Original Note:
Today's Communication / Plan
-
follow CBC
Impression
Impression
Cellulitis right lower extremity
Thrombosis right peroneal vein, possibly chronic
Unexplained iron deficiency anemia
Mild thrombocytopenia possibly secondary to liver disease
hepatic cirrhosis, splenomegaly, gallbladder wall thickening and pericholecystic fluid likely in the setting of systemic congestion/chronic liver disease
Plan
Plan
# RLE cellulitis-Antibiotics as per primary service.
#Chronic RLE Thrombus only below the knee, and as such monitoring as opposed to full dose anticoagulation would be an option. on DVT ppx
#TOOTIE -Will hold off on IV iron, some potential risk given acute infection. Start oral iron every other day. -Planned for GI evaluation, on ppi.
#Right thigh swelling and pain, which seems a little distant from his acute cellulitis. Repeat ab/pelvis shows stable inflammatory fat stranding about the anterolateral right upper thigh.
#thrombocytopenia secondary to infection +/- liver disease, would recommend monitoring for now.
#cirrhosis management per GI
Subjective/Objective
Chief Complaint
no new complaints
Subjective
rising WBC
improving platelet count
stable Hgb
Vital Signs:
Vital Signs
Temp Pulse Resp BP Pulse Ox
98.1 F 75 16 126/64 97
11/22/23 07:00 11/22/23 07:00 11/22/23 07:00 11/22/23 07:00 11/22/23 07:00
Lab Results:
Laboratory Data
WBC 17.2 10^3/uL (4.8-10.8) H 11/22/23 06:29
Hgb 11.1 g/dL (13.0-18.0) L 11/22/23 06:29
Plt Count 116 10^3/uL (130-400) L 11/22/23 06:29
PT 16.8 Sec (11.4-14.6) H 11/22/23 06:28
INR 1.35 11/22/23 06:28
APTT Cancelled 11/16/23 19:25
eGFR > 60.00 11/22/23 06:29
Physical Exam
HEENT: Moist Mucous Membranes; No Jaundice
Cardiology: Normal Sinus Rhythm
Pulmonary: Clear
GI: Soft
Extremities: Other (RLE edema)
Review of Systems
Review of Systems
review of systems notable for subjective, otherwise negative
[2023-11-22] MEDS: FEOSOL PO (10:21)
--- NOTE | 2023-11-22 12:42 | W.PN.ID1 ---
Date of Service
Date of Service: November 22, 2023
Today's Communication
- s/p empiric ivermectin 12 mg yesterday, will give second dose today - as pretreatment to prevent hyperinfection syndrome 11/20
- start prednisone 60 mg PO qday, already on PPI, discussed with Dr Og oncology
friend shares (and he corroborates) that he used to drink heavily every other weekend or so until about 12 years ago.
Assessment / Plan
Cellulitis - nonpurulent
Suspected Drug Rash
Eosinophilia - radha, progressing
Cirrhosis - diagnosed this visit, unclear cause
DVT - unprovoked
Prediabetic
Chronic Thrombocytopenia
- note further increased eosinophilia. Two months ago it was normal, on arrival AEC around 400 now up to 4000. Elevation now could be due to persistent cellulitis or another infection, drug reaction, less likely hematologic disorder. Patient is
mentasta to [facility].
- continue to follow CBC with differential
- serologies for strongyloides, HIV screen, IGRA, hep B/C sent
- stool O&P x3
- CXR without evidence of granulomatous disease
- blood culture x1 today
- Abd US: patent portal veins; cirrhosis and splenomegaly noted
- s/p empiric ivermectin 12 mg yesterday, will give second dose today - as pretreatment to prevent hyperinfection syndrome 11/20
- start prednisone 60 mg PO qday, already on PPI, discussed with Dr Og oncology
- continue vancomycin
- scheduled the Benadryl
- elevation of leg, he doesnt think he would tolerate compression right now; edema is notably improved today compared to yesterday
- light dressing, compression
- daily reassessment
- follow clinically
Chief Complaint
-: Cellulitis and Other (adverse drug reaction)
Subjective / Review of Systems
afebrile
bp stable
further increased leukocytosis
cr 0.6
hepatic US: also consistent with cirrhosis, patent hepatic vasculature, no acute cholecystitis
CXR: no evidence of granulomatous disease
had empiric ivermectin yesterday
endoscopy with varices
friend shares (and he corroborates) that he used to drink heavily every other weekend or so until about 12 years ago.
Vital Signs / Physical Exam
Vital Signs
Vital Signs
Temp Pulse Resp BP Pulse Ox
97.5 F 72 14 114/65 99
11/22/23 12:39 11/22/23 12:30 11/22/23 12:30 11/22/23 12:30 11/22/23 12:30
Physical Exam
Constitutional: No Acute Distress and Chronically Ill
Cardiovascular: Regular Rate and S1/S2; Negative Murmur or Rub
Pulmonary: Clear and Symmetric; Negative Wheezes or Rales
Gastrointestinal: Soft, Non Tender, Non Distended and Normal Bowel Sounds
Skin: Warm and Dry; Negative Rash or Jaundice
Objective Data
Lab Data
Lab Results
11/22/23 06:29
11/22/23 06:29
PT 16.8 Sec (11.4-14.6) H 11/22/23 06:28
INR 1.35 11/22/23 06:28
APTT Cancelled 11/16/23 19:25
Estimated Creat Clear 81 ml/min 11/22/23 06:29
Lactic Acid 1.7 mmol/L (0.7-2.0) 11/15/23 16:21
Total Bilirubin 1.5 mg/dl (0.2-1.3) H 11/22/23 06:29
AST 38 U/L (17-59) 11/22/23 06:29
ALT 25 U/L (0-50) 11/22/23 06:29
Alkaline Phosphatase 258 U/L (38-126) H 11/22/23 06:29
Most recent labs reviewed.
Micro Results:
11/15/23 16:21 Blood Culture - Final
Blood/Venous No Growth - Final Report
11/16/23 03:12 MRSA Screen - Final
Nose No Methicillin Resistant Staphylococcus aureus isolated.
Care Review
Plan reviewed with: Physician (Dr Og - steroids)
[2023-11-22] MEDS: STROMECTOL 12 MG PO (15:10)
[2023-11-22] MEDS: DELTASONE 60 MG PO (15:25)
--- NOTE | 2023-11-22 15:27 | WOUNDNOTE ---
R MEDIAL LOWER LEG
--- NOTE | 2023-11-22 15:28 | WOUNDNOTE ---
BACK AND NECK
--- NOTE | 2023-11-22 15:28 | WOUNDNOTE ---
SUSAN RN NOTE: Followed up as requested by dr. Acuña for updated wound care and compression input. Wounds on dorsal foot and medial lower leg now dry, drainage only from medial foot, weeping moderate serous. + palpable pedal pulses. 2+ edema.
Extremities and back with rash suspected reaction to Cefazolin per nurse. Patient offers no complain of pain today from R foot and leg. Family sitting at bedside translated and encouraged patient to elevate legs when sitting. Applied adaptic, abd
pad over medial foot only, moisturized leg and foot with mineral oil and applied arcenio wrap knee high. Will update wound care orders and notified nurse Kylie. Will follow as needed.
[2023-11-22] MEDS: HYDROPHOR 1 APPLIC TOPICAL (15:41)
[2023-11-22] MEDS: GAVILAX 238 GM PO (16:00)
--- NOTE | 2023-11-22 16:02 | PTCARENOTE ---
Explained bowel prep regimen, clear liquids and NPO after midnight for colonoscopy in the morning. 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 Patient verbalizes understanding and denies questions at this time.
[2023-11-22 17:13] LABS: Urine Albumin Negative (Neg - Trace); Urine Bilirubin Negative (Negative); Urine Character Clear (Clear); Urine Color Yellow; Urine Glucose Negative (Negative); Urine Ketone Negative (Negative); Urine Leukocyte Negative (Negative); Urine Nitrite Negative (Negative); Urine Occult Blood Negative (Negative); Urine Specific Gravity 1.015 (<1.030); Urine Urobilinogen Negative (Neg - 1+)
[2023-11-22] MEDS: VANCOCIN 275 MG IV (18:20)
[2023-11-22 19:26] LABS: Hepatitis B Surface Antigen Negative (Negative)
[2023-11-22 19:44] LABS: Hepatitis B Surface Antibody Negative; Hepatitis C Antibody Negative (Negative)
[2023-11-22] MEDS: TYLENOL 650 MG PO (20:01)
[2023-11-22 20:14] LABS: AFP Male/Tumor Marker 4.42 ng/ml
[2023-11-23 01:38] LABS: F-Actin Antibody IgG 10 Units (0-19); Mitochondrial M2 Ab, IgG 5.7 Units (0.0-24.9)
[2023-11-23 02:04] LABS: Ceruloplasmin 26 mg/dL (15-30)
[2023-11-23] MEDS: VANCOCIN 275 MG IV ×2 (06:29→17:11)
[2023-11-23] MEDS: BENADRYL PO (06:29)
[2023-11-23] MEDS: BENADRYL 25 MG PO ×3 (06:34→21:39)
[2023-11-23 07:00] VITALS: BP 103/59
[2023-11-23 07:11] LABS: % Basophils 0.2 % (0-2); % Eosinophils 31.7 % (0-6); % Immature Granulocytes 0.7 % (0-0.5); % Lymphocytes 17.4 % (20.5-51.1); % Monocytes 4.7 % (1.7-9.3); % Neutrophils 45.3 % (42.2-75.2); Absolute Eosinophils 3.7 10^3/uL (0-0.7); Absolute Immature Granulocytes 0.1 10^3/uL (0-0.05); Absolute Monocytes 0.5 10^3/uL (0.1-0.6); Absolute Neutrophils 5.3 10^3/uL (1.4-6.5); Hematocrit 28.4 % (39.0-52.0); Hemoglobin 9.4 g/dL (13.0-18.0); Mean Corp Hgb Conc. 33.1 g/dL (33.0-37.0); Mean Corpuscular Hgb 25.4 pg (27.0-31.0); Mean Corpuscular Volume 76.8 fL (80.0-94.0); Nucleated Red Blood Cells % 0 % (-); Red Cell Dist. Width 17.1 % (11.5-14.5); White Blood Cell Count 11.6 10^3/uL (4.8-10.8)
[2023-11-23 07:32] LABS: ALT (SGPT) 39 U/L (0-50); AST (SGOT) 57 U/L (17-59); Alkaline Phosphatase 331 U/L (38-126); Blood Urea Nitrogen 12 mg/dl (9-20); Carbon Dioxide 20 mmol/L (22-30); Chloride 106 mmol/L (98-107); Estimated Creatinine Clearance 81 ml/min; Glucose 159 mg/dl (70-99); Potassium 3.8 mmol/L (3.5-5.1); Sodium 132 mmol/L (135-145); Total Bilirubin 1.3 mg/dl (0.2-1.3); Total Protein 6.4 g/dl (6.3-8.2); eGFR > 60.00
--- NOTE | 2023-11-23 08:17 | PHA.VAN.FU ---
Vancomycin Assessment / Plan
- Assessment
Renal Function: Stable
WBC's are: Trending Down
In the past 24 hrs, patient has been: Afebrile
- Dosing Plan
Continue: Vanc 1250mg Q12H
- Monitoring Plan
No level(s) ordered at this time: consider level in next few days
- Follow Up
Pharmacy will continue to follow.
Vancomycin Follow UP
- -
Patient Age: 68
Patient Sex: Male
Vancomycin Day #: 5
Indication: Skin And Soft Tissue
Requesting Provider: Dr Acuña
Pertinent Antimicrobial Allergies:
NKDA
Height / Weight:
Height 5 ft
Actual Weight 61.915 kg
Pertinent Past Medical History: Cirrhosis
- Vital Signs / Lab Results
Temp Pulse Resp BP Pulse Ox
97.7 F 70 12 103/59 99
11/23/23 07:00 11/23/23 07:00 11/23/23 07:00 11/23/23 07:00 11/23/23 07:00
Lab Results - Hematology
11/21/23 11/22/23 11/23/23
05:32 06:29 06:21
WBC 14.0 H 17.2 H 11.6 H
Band Neutrophils 0
Lab Results - Chemistry
11/21/23 11/22/23 11/23/23
05:32 06:29 06:21
BUN 18 14 12
Creatinine 0.7 0.6 L 0.6 L
Estimated Creat Clear 69 81 81
Albumin 2.7 L 2.8 L 3.0 L
Lab Results - Urine
11/22/23
16:46
Urine Nitrite Negative
Ur Leukocyte Esterase Negative
Therapeutic Drug Monitoring
Vancomycin Peak 12.4 ug/ml (18-26) L 11/21/23 20:40
Vancomycin Trough 6.9 ug/ml (5-20) 11/22/23 06:29
[2023-11-23] MEDS: PROTONIX IV 40 MG IV ×2 (08:31→19:58)
[2023-11-23] MEDS: NSS (PRESERVATIVE FREE) 10 ML IV ×2 (08:31→19:58)
[2023-11-23] MEDS: HYDROPHOR 1 APPLIC TOPICAL (08:33)
[2023-11-23 09:12] LABS: Mean Platelet Volume 10.9 fL (7.4-10.4); Platelet Count 88 10^3/uL (130-400)
--- NOTE | 2023-11-23 10:10 | W.PN.ID1 ---
Date of Service
Date of Service: November 23, 2023
Today's Communication
continue prednisone
workup ongoing
Assessment / Plan
Cellulitis - nonpurulent
Suspected Drug Rash
Eosinophilia - radha, now improving
Cirrhosis - diagnosed this visit, unclear cause
DVT - unprovoked
Prediabetic
Chronic Thrombocytopenia
- eosinophilia now improving post steroids AEC today 3400 from 4000 - improvement driven by improving WBC count
- continue to follow CBC with differential
- serologies for strongyloides, HIV screen, IGRA, hep B/C sent
- stool O&P x3 - if not obtainable inpatient could potentially be done as an outpatient
- CXR without evidence of granulomatous disease
- blood culture x1 today
- Abd US: patent portal veins; cirrhosis and splenomegaly noted
- s/p empiric ivermectin x2 doses 11/20 and 11/21
- continue prednisone 60 mg PO qday, already on PPI
- continue vancomycin
- scheduled the Benadryl
- compression/elevation as tolerated
- follow clinically
Chief Complaint
-: Cellulitis and Other (adverse drug reaction)
Subjective / Review of Systems
remains afebrile
bp stable
wbc improved from 17 to 11
hgb 9.4
ptl 88
HIV and QFT gold pending
blood culture no growth to date
discussed at length with son
Vital Signs / Physical Exam
Vital Signs
Vital Signs
Temp Pulse Resp BP Pulse Ox
97.7 F 70 12 103/59 99
11/23/23 07:00 11/23/23 07:00 11/23/23 07:00 11/23/23 07:00 11/23/23 07:00
Physical Exam
Constitutional: No Acute Distress
Cardiovascular: Regular Rate and S1/S2; Negative Murmur or Rub
Pulmonary: Clear and Symmetric; Negative Wheezes or Rales
Gastrointestinal: Soft, Non Tender, Non Distended and Normal Bowel Sounds
Skin: Warm, Dry and Rash (extensive, coalescing, less raised now, less erathematous); Negative Jaundice
Objective Data
Lab Data
Lab Results
11/23/23 06:21
11/23/23 06:21
PT 16.8 Sec (11.4-14.6) H 11/22/23 06:28
INR 1.35 11/22/23 06:28
APTT Cancelled 11/16/23 19:25
Estimated Creat Clear 81 ml/min 11/23/23 06:21
Lactic Acid 1.7 mmol/L (0.7-2.0) 11/15/23 16:21
Total Bilirubin 1.3 mg/dl (0.2-1.3) 11/23/23 06:21
AST 57 U/L (17-59) 11/23/23 06:21
ALT 39 U/L (0-50) 11/23/23 06:21
Alkaline Phosphatase 331 U/L (38-126) H 11/23/23 06:21
Most recent labs reviewed.
Micro Results:
11/22/23 13:13 Blood Culture - Pending
Blood/Venous
11/15/23 16:21 Blood Culture - Final
Blood/Venous No Growth - Final Report
11/16/23 03:12 MRSA Screen - Final
Nose No Methicillin Resistant Staphylococcus aureus isolated.
Care Review
Plan reviewed with: Physician (Dr Berry)
[2023-11-23 10:30] VITALS: BP 108/63; BP_SYST 10
[2023-11-23 10:45] VITALS: BP 118/69; BP_SYST 19
[2023-11-23 11:23] VITALS: BP 108/54
[2023-11-23] MEDS: DELTASONE 60 MG PO (11:56)
[2023-11-23] MEDS: FEOSOL 325 MG PO (11:57)
--- NOTE | 2023-11-23 12:02 | W.PN.HOSP.TC ---
Today's Communication/Plan
-
CBC this afternoon
Resume diet
Assessment / Plan
Assessment / Plan
Gen-AAOx3, NAD
HEENT-NC, AT, anicteric, clear oral mm
Neck-supple
CV-reg, no M, +S1/S2
Lungs-clear B/L
Abd-soft, NT, ND
Ext-diffuse right lower extremity edema, hyperpigmentation
Musculoskeletal-no cyanosis, clubbing
Skin-warm and dry, diffuse maculopapular eruption upper and lower extremities, chest, back
Neuro-grossly non-focal
Psych-calm, cooperative
Right lower extremity cellulitis:
Continue IV vancomycin
Discontinued cefazolin due to allergic reaction.
ID consult appreciated
Elevate lower extremity, SHANNAN wrap for edema.
Would consult appreciated
X-ray unremarkable for bony involvement
Drug allergic reaction: Diffuse maculopapular rash
Likely due to cefazolin
Persistent eosinophilia-> allergic reaction likely contributing but might need to rule out other infiltrating processes that can contribute to eosinophilia as well.
Infectious disease working up for Strongyloides infection. Started empiric prednisone on 11/21 by ID service.
Empiric Ivermectin pending Strongyloides workup.
Chronic DVT, right lower extremity (untreated):
Hematology consult recommended against full anticoagulation and monitor.
Hematology did a CT of the abdomen as part of the workup and abnormal findings consistent with likely liver cirrhosis and portal hypertension--> will request GI consultation for further evaluation in the setting of findings of portal hypertension
and cirrhosis and iron deficiency anemia.
Cirrhosis - likely due to alcohol abuse.
Reviewed CT scan of the abdomen
GI consulted
US shows patent hepatic vasculature, hepatic cirrhosis, no focal lesions noted. Gallbladder wall thickening with pericholecystic fluid. Splenomegaly.
Hep B and C negative, autoimmune workup, celiac panel, SAM, AMA, ASMA, ceruloplasmin, alpha-1 antitrypsin and alpha-fetoprotein level, rest of workup per GI
Thrombocytopenia:
Appears to be chronic but could be related to liver disease
Hematology eval appreciated
Iron deficiency anemia:
GI eval appreciated
Continue Protonix
Continue to monitor hemoglobin
EGD showed grade 2 esophageal varices with no stigmata of recent bleed, erosive gastropathy.
Colonoscopy showed no bleeding. Did have multiple polyps, hemorrhoids, diverticulosis. Will need repeat colonoscopy in 1 year as per GI. Outpatient follow-up in 1 month.
DVT prophylaxis:
Lovenox SQ
Full code
Anticipated Discharge: 24 - 48 hours
Subjective/Interval History
-
Date of Service: November 23, 2023
Patient seen/examined. No complaints.
Objective Data
-
Labs:
Laboratory Results
11/23/23 11/23/23
06:21 13:00
WBC 11.6 H Pending
Hgb 9.4 L Pending
Hct 28.4 L Pending
Plt Count 88 L D Pending
Sodium 132 L
Potassium 3.8
Chloride 106
Carbon Dioxide 20 L
BUN 12
Creatinine 0.6 L
Glucose 159 H
Calcium 8.0 L
Total Bilirubin 1.3
AST 57
ALT 39
Alkaline Phosphatase 331 H
Vital Signs:
Vital Signs
Temp Pulse Resp BP Pulse Ox
97.7 F 64 16 108/54 100
11/23/23 11:23 11/23/23 11:23 11/23/23 11:23 11/23/23 11:23 11/23/23 11:23
I&O
11/22/23 11/23/23 11/24/23
06:59 06:59 06:59
Intake Total 900 / 900 2390 / 2390
Balance 900 / 900 2390 / 2390
Review of Systems
-
Unable to obtain full review of systems at this time due to: Language Barrier
--- NOTE | 2023-11-23 12:23 | PTCARENOTE ---
pt back from GI lab s/p colonoscopy. pt is AAO*3, vss, room air. pt denies any pain. call brunson within the reach. pt on low res diet. plan of care ongoing.
[2023-11-23 13:18] LABS: Hematocrit 31.4 % (39.0-52.0); Hemoglobin 10.1 g/dL (13.0-18.0); Mean Corp Hgb Conc. 32.2 g/dL (33.0-37.0); Mean Corpuscular Hgb 25.5 pg (27.0-31.0); Mean Corpuscular Volume 79.3 fL (80.0-94.0); Mean Platelet Volume 9.5 fL (7.4-10.4); Platelet Count 104 10^3/uL (130-400); Red Blood Cell Count 3.96 10^6/uL (4.70-6.10); Red Cell Dist. Width 17.6 % (11.5-14.5); White Blood Cell Count 16.1 10^3/uL (4.8-10.8)
[2023-11-23 14:34] LABS: HIV Combo Negative (Negative)
[2023-11-23] MEDS: FERRLECIT 110 MG IV (14:49)
[2023-11-23 15:00] VITALS: BP 116/61
--- NOTE | 2023-11-23 17:42 | CM ---
Family said pt started going to [facility].
[facility] saw pt.for no insurance.
IV antibiotics.
Family will drive him home.
PLAn Home with follow up at [facility]
[2023-11-23] MEDS: LOVENOX 40 MG SC (18:08)
[2023-11-23 23:12] VITALS: BP 117/54
[2023-11-24] MEDS: BENADRYL 25 MG PO ×2 (05:47→13:06)
[2023-11-24] MEDS: VANCOCIN 275 MG IV (06:13)
[2023-11-24 07:00] VITALS: BP 96/55
[2023-11-24 07:23] LABS: Endomysial IgA Antibody Titer <1:10 (<1:10)
[2023-11-24] MEDS: DELTASONE 60 MG PO (08:00)
[2023-11-24] MEDS: NSS (PRESERVATIVE FREE) 10 ML IV (08:00)
[2023-11-24] MEDS: PROTONIX IV 40 MG IV (08:01)
[2023-11-24] MEDS: HYDROPHOR 1 APPLIC TOPICAL (08:06)
[2023-11-24] MEDS: COREG PO (08:08)
--- NOTE | 2023-11-24 08:50 | PTCARENOTE ---
pt's BP 96/55 HR 65, MD order to hold Coreg this AM.
--- NOTE | 2023-11-24 09:31 | W.PN.HOSP.TC ---
Today's Communication/Plan
-
Await CBC
Assessment / Plan
Assessment / Plan
Gen-AAOx3, NAD
HEENT-NC, AT, anicteric, clear oral mm
Neck-supple
CV-reg, no M, +S1/S2
Lungs-clear B/L
Abd-soft, NT, ND
Ext-diffuse right lower extremity edema, hyperpigmentation
Musculoskeletal-no cyanosis, clubbing
Skin-warm and dry, diffuse maculopapular eruption upper and lower extremities, chest, back
Neuro-grossly non-focal
Psych-calm, cooperative
Right lower extremity cellulitis: Improving.
Continue IV vancomycin
Discontinued cefazolin due to allergic reaction.
ID consult appreciated
Elevate lower extremity, SHANNAN wrap for edema.
Would consult appreciated
X-ray unremarkable for bony involvement
Drug allergic reaction: Diffuse maculopapular rash
Likely due to cefazolin
Persistent eosinophilia-> allergic reaction likely contributing but might need to rule out other infiltrating processes that can contribute to eosinophilia as well. CBC pending for today.
Infectious disease working up for Strongyloides infection. Started empiric prednisone on 11/21 by ID service.
Empiric Ivermectin pending Strongyloides workup.
Chronic DVT, right lower extremity (untreated):
Hematology consult recommended against full anticoagulation and monitor.
Hematology did a CT of the abdomen as part of the workup and abnormal findings consistent with likely liver cirrhosis and portal hypertension--> will request GI consultation for further evaluation in the setting of findings of portal hypertension
and cirrhosis and iron deficiency anemia.
Cirrhosis - likely due to alcohol abuse.
Reviewed CT scan of the abdomen
GI consulted
US shows patent hepatic vasculature, hepatic cirrhosis, no focal lesions noted. Gallbladder wall thickening with pericholecystic fluid. Splenomegaly.
Hep B and C negative, autoimmune workup, celiac panel, SAM, AMA, ASMA, ceruloplasmin, alpha-1 antitrypsin and alpha-fetoprotein level, rest of workup per GI
Thrombocytopenia:
Appears to be chronic but could be related to liver disease
Hematology eval appreciated
Iron deficiency anemia:
GI eval appreciated
Continue Protonix
Continue to monitor hemoglobin
EGD showed grade 2 esophageal varices with no stigmata of recent bleed, erosive gastropathy.
Colonoscopy showed no bleeding. Did have multiple polyps, hemorrhoids, diverticulosis. Will need repeat colonoscopy in 1 year as per GI. Outpatient follow-up in 1 month.
DVT prophylaxis:
Lovenox SQ
Full code
Dispo -hopefully can discharge in the next 24 hours if okay with ID service.
Anticipated Discharge: Within 24 hours
Subjective/Interval History
-
Date of Service: November 24, 2023
Patient seen and examined. No complaints.
Objective Data
-
Labs:
Laboratory Results
11/24/23
09:27
WBC Pending
Hgb Pending
Hct Pending
Plt Count Pending
Vital Signs:
Vital Signs
Temp Pulse Resp BP Pulse Ox
97 F 65 18 96/55 100
11/24/23 07:00 11/24/23 08:08 11/24/23 07:00 11/24/23 08:08 11/24/23 07:00
I&O
11/23/23 11/24/23 11/25/23
06:59 06:59 06:59
Intake Total 2390 / 2390 480 / 480
Balance 2390 / 2390 480 / 480
Review of Systems
-
Unable to obtain full review of systems at this time due to: Language Barrier
--- NOTE | 2023-11-24 10:12 | W.PN.ONC ---
Today's Communication / Plan
-
CBC pending this am
Eosinophilia can be monitored as outpatient for improvement; rec. outpatient heme f/u if eosinophilia persists after a couple months despite cessation of abx and treatment for possible strongyloides
Oral iron QOD or 3x/week
No need for full anticoagulation, monitor clinically for any progression of below knee thrombus
Can be d/c'd from a heme standpoint
Impression
Impression
Cellulitis right lower extremity
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
Thrombosis right peroneal vein, possibly chronic
Unexplained iron deficiency anemia
Mild thrombocytopenia possibly secondary to liver disease
hepatic cirrhosis, splenomegaly, gallbladder wall thickening and pericholecystic fluid likely in the setting of systemic congestion/chronic liver disease
Plan
Plan
# RLE cellulitis-Antibiotics as per primary service.
#Chronic RLE Thrombus only below the knee, and as such monitoring as opposed to full dose anticoagulation would be an option. on DVT ppx
#TOOTIE -Will hold off on IV iron, some potential risk given acute infection. Start oral iron every other day. -Planned for GI evaluation, on ppi.
#Right thigh swelling and pain, which seems a little distant from his acute cellulitis. Repeat ab/pelvis shows stable inflammatory fat stranding about the anterolateral right upper thigh.
#thrombocytopenia secondary to infection +/- liver disease, would recommend monitoring for now.
#cirrhosis management per GI
Subjective/Objective
Subjective/Objective
wants to go home, no new issues
Vital Signs:
Vital Signs
Temp Pulse Resp BP Pulse Ox
97 F 65 18 96/55 100
11/24/23 07:00 11/24/23 08:08 11/24/23 07:00 11/24/23 08:08 11/24/23 07:00
Lab Results:
Laboratory Data
WBC 16.1 10^3/uL (4.8-10.8) H 11/23/23 13:03
Hgb 10.1 g/dL (13.0-18.0) L 11/23/23 13:03
Plt Count 104 10^3/uL (130-400) L 11/23/23 13:03
PT 16.8 Sec (11.4-14.6) H 11/22/23 06:28
INR 1.35 11/22/23 06:28
APTT Cancelled 11/16/23 19:25
eGFR > 60.00 11/23/23 06:21
[2023-11-24 10:24] LABS: % Basophils 0.1 % (0-2); % Eosinophils 40.9 % (0-6); % Immature Granulocytes 0.6 % (0-0.5); % Lymphocytes 15.4 % (20.5-51.1); % Monocytes 4.8 % (1.7-9.3); % Neutrophils 38.2 % (42.2-75.2); Absolute Eosinophils 4.8 10^3/uL (0-0.7); Absolute Immature Granulocytes 0.1 10^3/uL (0-0.05); Absolute Lymphocytes 1.8 10^3/uL (1.2-3.4); Absolute Monocytes 0.6 10^3/uL (0.1-0.6); Absolute Neutrophils 4.5 10^3/uL (1.4-6.5); Hematocrit 23.4 % (39.0-52.0); Mean Corp Hgb Conc. 33.3 g/dL (33.0-37.0); Mean Corpuscular Hgb 26.5 pg (27.0-31.0); Mean Corpuscular Volume 79.6 fL (80.0-94.0); Mean Platelet Volume 9.9 fL (7.4-10.4); Nucleated Red Blood Cells % 0 % (-); Platelet Count 79 10^3/uL (130-400); Red Blood Cell Count 2.94 10^6/uL (4.70-6.10); Red Cell Dist. Width 17.4 % (11.5-14.5); White Blood Cell Count 11.8 10^3/uL (4.8-10.8)
[2023-11-24 10:29] LABS: Hemoglobin 7.8 g/dL (13.0-18.0)
--- NOTE | 2023-11-24 11:03 | PTOTSP ---
PATIENT FUNCTIONING INDEPENDENTLY ON LEVEL SURFACES WELL ELEVATIONS. UPDATED RN AND ATTENDING. WILL DISCHARGE FROM P.T. SERVICES AT THIS TIME.
[2023-11-24 12:32] LABS: Hematocrit 25.6 % (39.0-52.0); Hemoglobin 8.3 g/dL (13.0-18.0)
--- NOTE | 2023-11-24 12:53 | W.PN.ID1 ---
Date of Service
Date of Service: November 24, 2023
Today's Communication
- eosinophilia now 4400 - will transition to weekly monitoring
- serologies for strongyloides, IGRA, pending
- hep B/C/HIV negative
- stool O&P x3 needed, two further samples to be sent, can be done as outpatient if discharge is planned
- blood cultures x2 are in progress, second set remains no growth to date
- stomach antrum biopsy reviewed
- s/p empiric ivermectin x2 doses 11/20 and 11/21
- continue prednisone 60 mg PO qday, already on PPI
- repeat cbc with diff weekly
- likely a 6+ week prednisone taper please give him a script for two weeks of 60 mg po qday on discharge; I will taper from there. I have discussed in detail with his adult sonteodoro Encinas who assists with his medical care and understands that he
should not abruptly stop the medication or miss the follow up.
- stopped vancomycin
- stopped Benadryl
- compression/elevation PRN
- follow up in clinic in about 2 weeks
Assessment / Plan
Cellulitis - resolved
Suspected Drug Rash
Eosinophilia - radha - somewhat increased today
Cirrhosis - diagnosed this visit, unclear cause
DVT - unprovoked
Prediabetic
Chronic Thrombocytopenia
- eosinophilia now 4400 - will transition to weekly monitoring
- serologies for strongyloides, IGRA, pending
- hep B/C/HIV negative
- stool O&P x3 needed, two further samples to be sent, can be done as outpatient if discharge is planned
- blood cultures x2 are in progress, second set remains no growth to date
- stomach antrum biopsy reviewed - discussed with Dr Aristeo rocha - unlikely to be due to hypereosinphilia, would suggest proceeding with rx for h pylori, discussed with Dr Rivas
- s/p empiric ivermectin x2 doses 11/20 and 11/21
- continue prednisone 60 mg PO qday, already on PPI
- repeat cbc with diff weekly
- likely a 6+ week prednisone taper please give him a script for two weeks of 60 mg po qday on discharge; I will taper from there. I have discussed in detail with his adult sonteodoro Encinas who assists with his medical care and understands that he
should not abruptly stop the medication or miss the follow up.
- stopped vancomycin
- stopped Benadryl
- compression/elevation PRN
- follow up in clinic in about 2 weeks
Chief Complaint
-: Cellulitis and Other (adverse drug reaction)
Subjective / Review of Systems
afebrile
bp hypotensive this am
wbc improved but AEC now again increased - 4400 today
hgb 8.3 this afternoon
cellulitis has resolved
disseminated rash continues to improve
trying to get further stools for O&P
Vital Signs / Physical Exam
Vital Signs
Vital Signs
Temp Pulse Resp BP Pulse Ox
97 F 65 18 96/55 100
11/24/23 07:00 11/24/23 08:08 11/24/23 07:00 11/24/23 08:08 11/24/23 07:00
Physical Exam
Constitutional: No Acute Distress
Cardiovascular: Regular Rate and S1/S2; Negative Murmur or Rub
Pulmonary: Clear and Symmetric; Negative Wheezes or Rales
Gastrointestinal: Soft, Non Tender, Non Distended and Normal Bowel Sounds
Skin: Warm, Dry and Rash (disseminated rash is fading, less raised); Negative Jaundice
Objective Data
Lab Data
Lab Results
11/24/23 12:17
11/23/23 06:21
PT 16.8 Sec (11.4-14.6) H 11/22/23 06:28
INR 1.35 11/22/23 06:28
APTT Cancelled 11/16/23 19:25
Estimated Creat Clear 81 ml/min 11/23/23 06:21
Lactic Acid 1.7 mmol/L (0.7-2.0) 11/15/23 16:21
Total Bilirubin 1.3 mg/dl (0.2-1.3) 11/23/23 06:21
AST 57 U/L (17-59) 11/23/23 06:21
ALT 39 U/L (0-50) 11/23/23 06:21
Alkaline Phosphatase 331 U/L (38-126) H 11/23/23 06:21
Most recent labs reviewed.
Micro Results:
11/23/23 17:49 Ova and Parasites - Pending
Feces/Stool
11/22/23 13:13 Blood Culture - Preliminary
Blood/Venous No Growth in 24 hours- Final report to follow
11/15/23 16:21 Blood Culture - Final
Blood/Venous No Growth - Final Report
11/16/23 03:12 MRSA Screen - Final
Nose No Methicillin Resistant Staphylococcus aureus isolated.
--- NOTE | 2023-11-24 13:54 | W.PN.GI.CBS2 ---
Addendum entered and electronically signed by Ofe Rivas DO 11/24/23 16:42:
Patient seen and examined independently of SILVIA. I agree with her note with my additions below
Spoke to the patient with his son on the phone to help translate in [place].
Patient denies any complaints and no overt bleeding.
I have discussed his pathology report with infectious disease and we are going to treat him for H. pylori in the setting of his biopsies and have started 12-day penicillin free regimen.. Will also need a twice daily PPI along with this regimen
Discussed pathology report from his colonoscopy
-- Patient will need follow-up with Dr. Clark in the office for chronic alcoholic cirrhosis. Patient is aware no alcohol from here on and he is very agreeable. His son is also aware.
-- Started Coreg 3.125 mg twice daily and can titrate up as an outpatient
-- Likely discharge tomorrow
Original Note:
Today's Communication / Plan
-
reviewed liver disease diagnosis at length with patient via language line
MELD 17 based on 11/21 labs
etiology ETOH related but pt with variable answers to ETOH use, hepatitis B, C neg, A1At pending, ceruloplasmin 26, IGGA 675
strongyloides ab 0.5 neg
reviewed when to return to hospital
will review EGD bx with Dr. Rivas with possible H pylori related -- discussed with ID
will need hep B immunization -- check hep A for immunity
HCC screening -- AFP 4.42, US no mass
cont PO iron, trend hbg with anemia
transition PPI to PO
2 g sodium diet
cont coreg 3./125 mg BID
message sent to office to arrange follow up-- stress to patient need for good follow up with chronic liver issue
avoid ETOH and hepatotoxic medications
Assessment / Plan
-
68-year-old [place] speaking male with history of DVT, noncompliant with Coumadin presenting with increased lower extremity swelling, pain and seeping of fluid. Noted to have iron deficiency anemia and also cirrhosis noted on CT scan and GI consult
called in. No GI symptoms at this time.
Iron deficiency anemia, no overt GI bleeding
----11/21 EGD grade II EV no recent bleeding, Z line regular, erosive gastropathy, normal duodenum-- bx neg stain for H pylori however pattern of inflammation suggest H pylori infection, PUD vs drug induced
----11/22 colonoscopy- no blood or masses, multiple polyps at least 8 5-10mm polyp rectum, AC, cecum and nset 3 mm polyp DC removed with oozing secondary to cirrhotic induced thrombocytopenia, diverticulosis, hemorrhoids, bx multiple TA--repeat 1
year
---- cont PPI daily
cirrhosis of liver
----minimal ETOH use
---11/21 US abd with doppler patent vasculature with appropriate directional flow, cirrhosis, no focal lesions, GBWT and pericholecystitic fluid in setting of congestion/chronic liver disease, no evidence cholelithiasis or acute cholecystitis,
splenomegaly
Esophageal varices
---cont coreg 3.125mg BID
eosinophilia
LE cellulitis
chronic DVT
drug rash
thrombocytopenia
PLAN:
reviewed liver disease diagnosis at length with patient via language line
MELD 17 based on 11/21 labs
etiology ETOH related but pt with variable answers to ETOH use, hepatitis B, C neg, A1At pending, ceruloplasmin 26, IGGA 675
strongyloides ab 0.5 neg
reviewed when to return to hospital
will review EGD bx with Dr. Rivas with possible H pylori -- discussed with ID
will need hep B immunization -- check hep A for immunity
HCC screening -- AFP 4.42, US no mass
cont PO iron , trend hbg with anemia
transition PPI to PO
2 g sodium diet
cont coreg 3./125 mg BID
message sent to office to arrange follow up-- stress to patient need for good follow up with chronic liver issue
avoid ETOH and hepatotoxic medications
Subjective
Subjective
Date of Service: November 24, 2023
brown stool, on low residue diet
Objective
Data Reviewed
Laboratory Data:
Laboratory Results
11/24/23 12:17
11/23/23 06:21
Laboratory Results
PT 16.8 Sec (11.4-14.6) H 11/22/23 06:28
INR 1.35 11/22/23 06:28
APTT Cancelled 11/16/23 19:25
Total Bilirubin 1.3 mg/dl (0.2-1.3) 11/23/23 06:21
AST 57 U/L (17-59) 11/23/23 06:21
ALT 39 U/L (0-50) 11/23/23 06:21
Alkaline Phosphatase 331 U/L (38-126) H 11/23/23 06:21
Vital Signs and I&O:
Vital Signs
Temp Pulse Resp BP Pulse Ox
97 F 65 18 96/55 100
11/24/23 07:00 11/24/23 08:08 11/24/23 07:00 11/24/23 08:08 11/24/23 07:00
I&O
11/23/23 11/24/23 11/25/23
06:59 06:59 06:59
Intake Total 2390 / 2390 480 / 480
Balance 2390 / 2390 480 / 480
Physical Exam
Physical Exam
HEENT: Anicteric and Moist mucous membranes
Cardiology: Normal Sinus Rhythm
Pulmonary: Clear
GI: Soft, Non Distended and Non Tender
Extremities: Edema (Le with dressing intact, +1 b/l edema )
Neuro: Non Focal
[2023-11-24 15:39] VITALS: BP 122/70
[2023-11-24 16:09] LABS: tTG IgA Antibody 22.1 EU/ml (0-19); tTG IgG Antibody 19.9 EU/ml (0-19)
--- NOTE | 2023-11-24 16:10 | PN.CDI ---
CDI
- -
CDI:
Physician Documentation Request
Admit Date: 11/15/23 20:57
Dear Doctor Kristi,
Please review the following and provide your response in the progress notes.
Clinical Indicators:
Pt admitted with RLE cellulitis/ Iron Deficiency Anemia /Alcoholic cirrhosis with ascites
Documented per colonoscopy report, ' Monitor hgb this afternoon - he will likely ooze from the polypectomies .....significant.Noted hgb dropped this morning - patient stated red blood during his prep which may have been related to his
hemorrhoids...'
Oncology note 11/23,' TOOTIE -Will hold off on IV iron, some potential risk given acute infection. Start oral iron every other day. -Planned for GI evaluation, on ppi....'
Trended Hemiglobin/Hematocrit below
11/15/23 11/15/23 11/17/23
16:21 21:53 06:36
Hgb 10.1 L 9.9 L
Hct 32.0 L 30.6 L
11/19/23 11/20/23 11/21/23
06:40 05:45 05:32
Hgb 11.0 L 10.9 L 11.1 L
Hct 33.4 L 34.5 L 33.7 L
11/22/23 11/23/23 11/23/23
06:29 06:21 13:03
Hgb 9.4 L
Hct 33.5 L 31.4 L
11/24/23 11/24/23
10:16 12:17
Hgb 7.8 L D 8.3 L
Hct 25.6 L
Based on the above, could you clarify, in your progress note, which of the following is the most likely type of anemia you are evaluating, monitoring and/or treating?
Acute blood loss anemia with baseline chronic anemia Iron Deficiency Anemia with Chronic Blood Loss
Chronic iron deficiency anemia due to blood loss- Only
Other (please specify)
Use of terms such as suspected, likely, concern for, or probable (associated with a specific diagnosis that is being evaluated, monitored, or treated as if it exists) are acceptable and can be coded in the inpatient setting, when documented at the
time of discharge.
Thank you,
Nichelle Solis RN
CDI Specialist
[place] [facility]
Please use your independent medical judgment in providing your response.
--- NOTE | 2023-11-24 16:18 | PN.CDI ---
CDI
- -
CDI:
Physician Documentation Request
Admit Date: 11/15/23 20:57
Dear Doctor Kristi,
Please review the following and provide your response in the progress notes.
Clinical Indicators:
Pt admitted with RLE cellulitis/ Iron Deficiency Anemia /Alcoholic cirrhosis with ascites
Trended Sodium lab as below
11/19/23 11/20/23 11/21/23
06:40 05:45 05:32
Sodium 134 L 133 L 131 L
11/22/23 11/23/23
06:29 06:21
Sodium 130 L 132 L
Based on the above, could you clarify in the progress notes, the appropriate diagnosis, if significant, that supports the above abnormalities and additional evaluation, monitoring and/or treatment rendered:
Hyponatremia
Abnormal lab value
Other (please specify)
Use of terms such as suspected, likely, concern for, or probable (associated with a specific diagnosis that is being evaluated, monitored, or treated as if it exists) are acceptable and can be coded in the inpatient setting, when documented at the
time of discharge.
Thank you,
Nichelle Solis RN
CDI Specialist
[facility]
Please use your independent medical judgment in providing your response.
[2023-11-24] MEDS: LOVENOX 40 MG SC (17:27)
[2023-11-24] MEDS: PINK BISMUTH 525 MG PO (17:27)
[2023-11-24] MEDS: [UNRECOGNIZED DRUG - OTHER] 500 MG PO ×2 (17:27→21:15)
[2023-11-24] MEDS: FLAGYL 250 MG PO (17:27)
[2023-11-24 19:39] LABS: Alpha-1-Antitrypsin 187 mg/dL (90-200); Alpha-1-Antitrypsin Phenotype M1M1
[2023-11-24] MEDS: COREG 3.125 MG PO (20:34)
[2023-11-24 23:16] VITALS: BP 120/59
[2023-11-25] MEDS: PINK BISMUTH 525 MG PO ×3 (00:13→12:17)
[2023-11-25] MEDS: FLAGYL 250 MG PO ×3 (00:13→12:17)
[2023-11-25 02:21] LABS: Quantiferon Mitogen minus NIL 1.51 IU/mL; Quantiferon NIL 0.03 IU/mL; Quantiferon Plus TB1 minus NIL 0.22 IU/mL (<=0.34); Quantiferon Plus TB2 minus NIL 0.13 IU/mL (<=0.34); Quantiferon TB Gold Plus Negative (Negative)
[2023-11-25 05:25] LABS: % Basophils 0.2 % (0-2); % Eosinophils 34.1 % (0-6); % Immature Granulocytes 1.7 % (0-0.5); % Lymphocytes 16.6 % (20.5-51.1); % Neutrophils 41.4 % (42.2-75.2); Absolute Eosinophils 4.7 10^3/uL (0-0.7); Absolute Immature Granulocytes 0.2 10^3/uL (0-0.05); Absolute Lymphocytes 2.3 10^3/uL (1.2-3.4); Absolute Monocytes 0.8 10^3/uL (0.1-0.6); Absolute Neutrophils 5.7 10^3/uL (1.4-6.5); Hematocrit 22.9 % (39.0-52.0); Hemoglobin 7.4 g/dL (13.0-18.0); Mean Corp Hgb Conc. 32.3 g/dL (33.0-37.0); Mean Corpuscular Hgb 25.8 pg (27.0-31.0); Mean Corpuscular Volume 79.8 fL (80.0-94.0); Mean Platelet Volume 10.2 fL (7.4-10.4); Nucleated Red Blood Cells % 0.1 % (-); Platelet Count 88 10^3/uL (130-400); Red Blood Cell Count 2.87 10^6/uL (4.70-6.10); White Blood Cell Count 13.9 10^3/uL (4.8-10.8)
[2023-11-25 07:00] VITALS: BP 105/57
[2023-11-25 07:46] LABS: Number Of Markers 30 markers; Source Blood
--- NOTE | 2023-11-25 07:56 | W.PN.HOSP.TC ---
Addendum entered and electronically signed by Juan Ramon Berry DO 11/25/23 13:50:
Hyponatremia
Acute blood loss anemia with baseline chronic Iron Deficiency Anemia with Chronic Blood Loss
Original Note:
Today's Communication/Plan
-
Transfuse
Discharge
Assessment / Plan
Assessment / Plan
Gen-AAOx3, NAD
HEENT-NC, AT, anicteric, clear oral mm
Neck-supple
CV-reg, no M, +S1/S2
Lungs-clear B/L
Abd-soft, NT, ND
Ext-diffuse right lower extremity edema, hyperpigmentation
Musculoskeletal-no cyanosis, clubbing
Skin-warm and dry, diffuse maculopapular eruption upper and lower extremities, chest, back
Neuro-grossly non-focal
Psych-calm, cooperative
Acute on chronic anemia -hemoglobin down to 7.4 this a.m., was 10.1 2 days ago. No signs of acute GI bleed currently. Stool recorded as brown. He has had a lot of blood draws over the past 10 days of hospitalization, likely contributing to the
anemia. Transfuse 1 unit of blood today. Discussed with patient and son on the phone.
Right lower extremity cellulitis: Improving.
Discontinued cefazolin due to allergic reaction. Now off vancomycin per ID.
ID consult appreciated
Elevate lower extremity, SHANNAN wrap for edema.
Would consult appreciated
X-ray unremarkable for bony involvement
Drug allergic reaction: Diffuse maculopapular rash
Likely due to cefazolin
Persistent eosinophilia-> allergic reaction likely contributing but might need to rule out other infiltrating processes that can contribute to eosinophilia as well. CBC pending for today.
Infectious disease working up for Strongyloides infection. Started empiric prednisone on 11/21 by ID service.
Empiric Ivermectin pending Strongyloides workup.
Chronic DVT, right lower extremity (untreated):
Hematology consult recommended against full anticoagulation and monitor.
Hematology did a CT of the abdomen as part of the workup and abnormal findings consistent with likely liver cirrhosis and portal hypertension--> will request GI consultation for further evaluation in the setting of findings of portal hypertension
and cirrhosis and iron deficiency anemia.
Cirrhosis - likely due to alcohol abuse.
Reviewed CT scan of the abdomen
GI consulted
US shows patent hepatic vasculature, hepatic cirrhosis, no focal lesions noted. Gallbladder wall thickening with pericholecystic fluid. Splenomegaly.
Hep B and C negative, autoimmune workup, celiac panel, SAM, AMA, ASMA, ceruloplasmin, alpha-1 antitrypsin and alpha-fetoprotein level, rest of workup per GI
Thrombocytopenia:
Appears to be chronic but could be related to liver disease
Hematology eval appreciated
Iron deficiency anemia:
GI eval appreciated
Continue Protonix
Continue to monitor hemoglobin
EGD showed grade 2 esophageal varices with no stigmata of recent bleed, erosive gastropathy.
Colonoscopy showed no bleeding. Did have multiple polyps, hemorrhoids, diverticulosis. Will need repeat colonoscopy in 1 year as per GI. Outpatient follow-up in 1 month.
DVT prophylaxis:
Lovenox SQ
Full code
Dispo -transfuse 1 unit of blood then discharge. Close outpatient follow-up. Strict alcohol abstinence. Discussed with patient's son on the phone.
35 minutes spent in discharge process.
Anticipated Discharge: Today
Subjective/Interval History
-
Date of Service: November 25, 2023
Patient seen and examined. No complaints. Discussed care with the help of patient's son to translate.
Objective Data
-
Labs:
Laboratory Results
11/25/23
04:25
WBC 13.9 H
Hgb 7.4 L
Hct 22.9 L
Plt Count 88 L
Vital Signs:
Vital Signs
Temp Pulse Resp BP Pulse Ox
98.3 F 65 16 105/57 98
11/25/23 07:00 11/25/23 07:00 11/25/23 07:00 11/25/23 07:00 11/25/23 07:00
I&O
11/24/23 11/25/23 11/26/23
06:59 06:59 06:59
Intake Total 480 / 480 1800 / 1800
Balance 480 / 480 1800 / 1800
Review of Systems
-
Unable to obtain full review of systems at this time due to: Language Barrier
[2023-11-25] MEDS: [UNRECOGNIZED DRUG - OTHER] 500 MG PO ×2 (07:59→12:17)
[2023-11-25] MEDS: DELTASONE 60 MG PO (08:00)
[2023-11-25] MEDS: PROTONIX 40 MG PO (08:00)
[2023-11-25] MEDS: COREG 3.125 MG PO (08:00)
[2023-11-25] MEDS: HYDROPHOR 1 APPLIC TOPICAL (08:01)
--- NOTE | 2023-11-25 08:16 | W.DS.TRANS ---
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
-
Discharge Instructions:
Discharge Diagnosis/Procedures Right leg cellulitis, DVT, drug rash, cirrhosis,
anemia
Diet Low Residue,Other diet
Additional Diets 4 g sodium diet
Activity As tolerated
Driving Restrictions As prior to admission
Bathing Restrictions None
Blood Work CBC in 1 week with your primary care doctor
Instructions:
Stand-Alone Forms:
Changes to Home Medications: No
Discharge Medications:
DC Medications w/original date entered in [employer]
bismuth subsalicylate 525 mg tablet 525 mg PO QID #45 tabs 11/25/23
carvedilol 3.125 mg tablet 3.125 mg PO BID #60 tabs 11/25/23
ferrous sulfate 325 mg (65 mg iron) tablet (FeroSul) 325 mg PO Q48H #30 tabs 11/25/23
metronidazole 250 mg tablet 250 mg PO Q6 #45 tabs 11/25/23
pantoprazole 40 mg tablet,delayed release 40 mg PO BID #60 tabs 11/25/23
prednisone 20 mg tablet 60 mg (3 x 20 mg) PO DAILY #42 tabs 11/25/23
tetracycline 250 mg capsule 500 mg (2 x 250 mg) PO QID #45 caps 11/25/23
white petrolatum 42 % topical ointment (Hydrophor) 1 applic topical DAILY #100 grams 11/25/23
Home Medication Changes
Pending Results: No
--- NOTE | 2023-11-25 08:37 | W.PN.GI.CBS2 ---
Today's Communication / Plan
-
- agree with discharge after 1U of pRBCs
Assessment / Plan
-
68-year-old Slov[place] speaking male with history of DVT, noncompliant with Coumadin presenting with increased lower extremity swelling, pain and seeping of fluid. Noted to have iron deficiency anemia and also cirrhosis noted on CT scan and GI consult
called in. No GI symptoms at this time.
Iron deficiency anemia, no overt GI bleeding
----11/21 EGD grade II EV no recent bleeding, Z line regular, erosive gastropathy, normal duodenum-- bx neg stain for H pylori however pattern of inflammation suggest H pylori infection, PUD vs drug induced
----11/22 colonoscopy- no blood or masses, multiple polyps at least 8 5-10mm polyp rectum, AC, cecum and nset 3 mm polyp DC removed with oozing secondary to cirrhotic induced thrombocytopenia, diverticulosis, hemorrhoids, bx multiple TA--repeat 1
year
---- cont PPI daily
cirrhosis of liver
----minimal ETOH use
---11/21 US abd with doppler patent vasculature with appropriate directional flow, cirrhosis, no focal lesions, GBWT and pericholecystitic fluid in setting of congestion/chronic liver disease, no evidence cholelithiasis or acute cholecystitis,
splenomegaly
Esophageal varices
---cont coreg 3.125mg BID
eosinophilia
LE cellulitis
chronic DVT
drug rash
thrombocytopenia
PLAN:
reviewed liver disease diagnosis at length with patient via language line
MELD 17 based on 11/21 labs
etiology ETOH related but pt with variable answers to ETOH use, hepatitis B, C neg, A1At pending, ceruloplasmin 26, IGGA 675
strongyloides ab 0.5 neg
reviewed when to return to hospital
will need hep B immunization -- check hep A for immunity
HCC screening -- AFP 4.42, US no mass
cont PO iron , trend hbg with anemia
transition PPI to PO
2 g sodium diet
cont coreg 3./125 mg BID
message sent to office to arrange follow up-- stress to patient need for good follow up with chronic liver issue
avoid ETOH and hepatotoxic medications
I have discussed his pathology report with infectious disease and we are going to treat him for H. pylori in the setting of his biopsies and have started 12-day penicillin free regimen.. Will also need a twice daily PPI along with this regimen
Discussed pathology report from his colonoscopy
-- Patient will need follow-up with Dr. Clark in the office for chronic alcoholic cirrhosis. Patient is aware no alcohol from here on and he is very agreeable. His son is also aware.
-- Started Coreg 3.125 mg twice daily and can titrate up as an outpatient
-- patient to get 1U of blood then to be discharged with follow up
Subjective
Subjective
Date of Service: November 25, 2023
no complaints. no overt bleeding
Objective
Data Reviewed
Laboratory Data:
Laboratory Results
11/25/23 04:25
11/23/23 06:21
Laboratory Results
PT 16.8 Sec (11.4-14.6) H 11/22/23 06:28
INR 1.35 11/22/23 06:28
APTT Cancelled 11/16/23 19:25
Total Bilirubin 1.3 mg/dl (0.2-1.3) 11/23/23 06:21
AST 57 U/L (17-59) 11/23/23 06:21
ALT 39 U/L (0-50) 11/23/23 06:21
Alkaline Phosphatase 331 U/L (38-126) H 11/23/23 06:21
Vital Signs and I&O:
Vital Signs
Temp Pulse Resp BP Pulse Ox
98.3 F 65 16 105/57 98
11/25/23 07:00 11/25/23 08:00 11/25/23 07:00 11/25/23 08:00 11/25/23 07:00
I&O
11/24/23 11/25/23 11/26/23
06:59 06:59 06:59
Intake Total 480 / 480 1800 / 1800
Balance 480 / 480 1800 / 1800
Physical Exam
Physical Exam
HEENT: Other (mildly icteric)
Cardiology: Normal Sinus Rhythm
GI: Soft, Non Distended and Non Tender
Extremities: No Edema
Neuro: Non Focal
--- NOTE | 2023-11-25 11:35 | W.PN.ONC2 ---
Today's Communication / Plan
-
Eosinophilia can be monitored as outpatient for improvement; rec. outpatient heme f/u if eosinophilia persists after a couple months despite cessation of abx and treatment for possible strongyloides
Oral iron QOD or 3x/week
No need for full anticoagulation, monitor clinically for any progression of below knee thrombus
Can be d/c'd from a heme standpoint
Impression
Impression
Cellulitis right lower extremity
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
Thrombosis right peroneal vein, possibly chronic
Unexplained iron deficiency anemia
Mild thrombocytopenia possibly secondary to liver disease
hepatic cirrhosis, splenomegaly, gallbladder wall thickening and pericholecystic fluid likely in the setting of systemic congestion/chronic liver disease
Plan
Plan
# RLE cellulitis-Antibiotics as per primary service.
#Chronic RLE Thrombus only below the knee, and as such monitoring as opposed to full dose anticoagulation would be an option. on DVT ppx
#TOOTIE -Will hold off on IV iron, some potential risk given acute infection. Start oral iron every other day. -Planned for GI evaluation, on ppi.
#Right thigh swelling and pain, which seems a little distant from his acute cellulitis. Repeat ab/pelvis shows stable inflammatory fat stranding about the anterolateral right upper thigh.
#thrombocytopenia secondary to infection +/- liver disease, would recommend monitoring for now.
#cirrhosis management per GI
Subjective/Objective
Chief Complaint
no new complaints
Subjective
denies pain or bleeding
Vital Signs:
Vital Signs
Temp Pulse Resp BP Pulse Ox
98.3 F 65 16 105/57 98
11/25/23 07:00 11/25/23 08:00 11/25/23 07:00 11/25/23 08:00 11/25/23 07:00
Lab Results:
Laboratory Data
WBC 13.9 10^3/uL (4.8-10.8) H 11/25/23 04:25
Hgb 7.4 g/dL (13.0-18.0) L 11/25/23 04:25
Plt Count 88 10^3/uL (130-400) L 11/25/23 04:25
PT 16.8 Sec (11.4-14.6) H 11/22/23 06:28
INR 1.35 11/22/23 06:28
APTT Cancelled 11/16/23 19:25
eGFR > 60.00 11/23/23 06:21
Physical Exam
Integ warm and dry, diffuse maculopapular eruption upper and lower extremities, chest, back
HEENT: Moist Mucous Membranes; No Jaundice
Cardiology: Normal Sinus Rhythm
Pulmonary: Clear
GI: Soft
Extremities: Other (diffuse right lower extremity edema, hyperpigmentation)
Neuro: Non Focal
Review of Systems
Review of Systems
notable for subjective otherwise negative
--- NOTE | 2023-11-25 12:11 | W.PN.ID1 ---
Date of Service
Date of Service: November 25, 2023
Today's Communication
- s/p empiric ivermectin x2 doses 11/20 and 11/21
- tetracycline, metronidazole, bismuth, protonix for H pylori
- continue prednisone 60 mg PO qday, already on PPI
- repeat cbc with diff weekly
- likely a 6+ week prednisone taper please give him a script for two weeks of 60 mg po qday on discharge; I will taper from there. I have discussed in detail with his adult sonteodoro Encinas who assists with his medical care and understands that he
should not abruptly stop the medication or miss the follow up.
- stopped Benadryl
- compression/elevation PRN
- follow up in clinic in about 2 weeks
Assessment / Plan
Cellulitis - resolved
Suspected Drug Rash
Eosinophilia - radha - somewhat increased today
Cirrhosis - diagnosed this visit, unclear cause
DVT - unprovoked
Prediabetic
Chronic Thrombocytopenia
- eosinophilia persists - will transition to weekly monitoring
- serologies for strongyloides pending
- hep B/C/HIV/TB negative
- stool O&P x3 needed, two further samples to be sent, can be done as outpatient if discharge is planned
- blood cultures x2 are in progress, second set remains no growth to date
- stomach antrum biopsy reviewed - discussed with Dr Alberts path - unlikely to be due to hypereosinphilia, would suggest proceeding with rx for h pylori, discussed with Dr Rivas
- s/p empiric ivermectin x2 doses 11/20 and 11/21
- tetracycline, metronidazole, bismuth, protonix for H pylori
- continue prednisone 60 mg PO qday, already on PPI
- repeat cbc with diff weekly
- likely a 6+ week prednisone taper please give him a script for two weeks of 60 mg po qday on discharge; I will taper from there. I have discussed in detail with his adult sonteodoro Encinas who assists with his medical care and understands that he
should not abruptly stop the medication or miss the follow up.
- stopped Benadryl
- compression/elevation PRN
- follow up in clinic in about 2 weeks
Chief Complaint
-: Cellulitis and Other (adverse drug reaction)
Subjective / Review of Systems
afebrile
bp stable
AEC 4700 today
started tetracycline, metronidazole, bismuth, protonix
rash notably faded
Vital Signs / Physical Exam
Vital Signs
Vital Signs
Temp Pulse Resp BP Pulse Ox
98.3 F 65 16 105/57 98
11/25/23 07:00 11/25/23 08:00 11/25/23 07:00 11/25/23 08:00 11/25/23 07:00
Physical Exam
Constitutional: No Acute Distress and Chronically Ill
Cardiovascular: Regular Rate and S1/S2; Negative Murmur or Rub
Pulmonary: Clear and Symmetric; Negative Wheezes or Rales
Gastrointestinal: Soft, Non Tender, Non Distended and Normal Bowel Sounds
Skin: Warm and Dry; Negative Rash (markedly improved, minimally visible at this time) or Jaundice
Objective Data
Lab Data
Lab Results
11/25/23 04:25
11/23/23 06:21
PT 16.8 Sec (11.4-14.6) H 11/22/23 06:28
INR 1.35 11/22/23 06:28
APTT Cancelled 11/16/23 19:25
Estimated Creat Clear 81 ml/min 11/23/23 06:21
Lactic Acid 1.7 mmol/L (0.7-2.0) 11/15/23 16:21
Total Bilirubin 1.3 mg/dl (0.2-1.3) 11/23/23 06:21
AST 57 U/L (17-59) 11/23/23 06:21
ALT 39 U/L (0-50) 11/23/23 06:21
Alkaline Phosphatase 331 U/L (38-126) H 11/23/23 06:21
Most recent labs reviewed.
Micro Results:
11/22/23 13:13 Blood Culture - Preliminary
Blood/Venous No Growth in 48 hours- Final report to follow
11/23/23 17:49 Ova and Parasites - Pending
Feces/Stool
11/15/23 16:21 Blood Culture - Final
Blood/Venous No Growth - Final Report
11/16/23 03:12 MRSA Screen - Final
Nose No Methicillin Resistant Staphylococcus aureus isolated.
[2023-11-25] MEDS: FEOSOL 325 MG PO (12:17)
[2023-11-25 13:19] VITALS: BP 104/50
[2023-11-25 13:44] VITALS: BP 94/54
--- NOTE | 2023-11-25 14:20 | CM ---
met with patient who is stable for dc home with no needs.he will follow up with [facility].
[2023-11-25 15:00] VITALS: BP 107/57
[2023-11-25 17:10] VITALS: BP 105/54
[2023-11-25 19:20] LABS: Hepatitis A Antibody, Total Positive (Negative)
== END 2023-11-25 18:17 | disposition home or self-care (01) | DRG 812 ==
LOC: 4 EAST ACU 20:57
PROVIDERS: Clinical Nurse Specialist Family Health; Hospitalist; Internal Medicine; Nurse Practitioner Acute Care; Nurse Practitioner Adult Health; ADMITTING PHYSICIAN Hospitalist; ATTENDING PHYSICIAN Hospitalist; CONSULT PHYSICIAN Internal Medicine Gastroenterology; CONSULT PHYSICIAN Student in an Organized Health Care Education/Training Program; EMERGENCY PHYSICIAN Emergency Medicine; OTHER PHYSICIAN Internal Medicine Hematology & Oncology
PROC: 0DB58ZX Excision of Esophagus, Via Natural or Artificial Opening Endoscopic, Diagnostic (ICD-10-PCS; 2023-11-22)
PROC: 0DBM8ZX Excision of Descending Colon, Via Natural or Artificial Opening Endoscopic, Diagnostic (ICD-10-PCS; 2023-11-23)
PROC: 30233N1 Transfusion of Nonautologous Red Blood Cells into Peripheral Vein, Percutaneous Approach (ICD-10-PCS; 2023-11-25)
DX: D50.0 Iron deficiency anemia secondary to blood loss (chronic) (principal); L03.115 Cellulitis of right lower limb; I85.00 Esophageal varices without bleeding; E87.1 Hypo-osmolality and hyponatremia; I82.551 Chronic embolism and thrombosis of right peroneal vein; K76.6 Portal hypertension; A04.8 Other specified bacterial intestinal infections; D72.10 Eosinophilia, unspecified; D69.6 Thrombocytopenia, unspecified; K57.30 Diverticulosis of large intestine without perforation or abscess without bleeding; T36.1X5A Adverse effect of cephalosporins and other beta-lactam antibiotics, initial encounter; B99.8 Other infectious disease; K70.31 Alcoholic cirrhosis of liver with ascites
CPT/HCPCS: 88305; 71046; 73630; 74176; 74177; 76700; 80048; 80053; 80202; 81003; 82103; 82104; 82105; 82390; 82607; 82728; 82746; 82784; 83036; 83516; 83540; 83550; 83605; 83880; 85014; 85018; 85025; 85027; 85610; 85730; 86015; 86231; 86381; 86480; 86706; 86708; 86803; 86850; 86900; 86901; 86920; 87040; 87070; 87177; 87209; 87340; 87389; 88342; 93971; 93975; 96365; 97116; 97162; 97166; 97530; 99285; J2916; P9016; Q9967

== ENCOUNTER → 2023-12-02 11:31 | Outpatient (REF) | payer OTHER, SELFPAY ==
[2023-12-02 13:36] LABS: % Basophils 0.9 % (0-2); % Eosinophils 13.2 % (0-6); % Immature Granulocytes 0.3 % (0-0.5); % Lymphocytes 27.4 % (20.5-51.1); % Monocytes 12.9 % (1.7-9.3); % Neutrophils 45.3 % (42.2-75.2); Absolute Eosinophils 0.5 10^3/uL (0-0.7); Absolute Lymphocytes 0.9 10^3/uL (1.2-3.4); Absolute Monocytes 0.4 10^3/uL (0.1-0.6); Absolute Neutrophils 1.5 10^3/uL (1.4-6.5); Hematocrit 25.9 % (39.0-52.0); Hemoglobin 8.5 g/dL (13.0-18.0); Mean Corp Hgb Conc. 32.8 g/dL (33.0-37.0); Mean Corpuscular Hgb 26.8 pg (27.0-31.0); Mean Corpuscular Volume 81.7 fL (80.0-94.0); Mean Platelet Volume 9.4 fL (7.4-10.4); Nucleated Red Blood Cells % 0 % (-); Platelet Count 89 10^3/uL (130-400); Red Blood Cell Count 3.17 10^6/uL (4.70-6.10); Red Cell Dist. Width 19.3 % (11.5-14.5); White Blood Cell Count 3.4 10^3/uL (4.8-10.8)
== END ==
LOC: CLINIC 11:31
PROVIDERS: ATTENDING PHYSICIAN Family Medicine
DX: D50.9 Iron deficiency anemia, unspecified (principal); D72.12 Drug rash with eosinophilia and systemic symptoms syndrome
CPT/HCPCS: 36415; 85025

== ENCOUNTER → 2023-12-07 09:27 | Outpatient (REF) | payer OTHER, SELFPAY ==
[2023-12-07 10:19] LABS: % Basophils 0.7 % (0-2); % Eosinophils 1.4 % (0-6); % Immature Granulocytes 0.4 % (0-0.5); % Lymphocytes 25.8 % (20.5-51.1); % Neutrophils 62.7 % (42.2-75.2); Absolute Lymphocytes 0.7 10^3/uL (1.2-3.4); Absolute Monocytes 0.3 10^3/uL (0.1-0.6); Absolute Neutrophils 1.8 10^3/uL (1.4-6.5); Hematocrit 25.6 % (39.0-52.0); Hemoglobin 8.3 g/dL (13.0-18.0); Mean Corp Hgb Conc. 32.4 g/dL (33.0-37.0); Mean Corpuscular Hgb 26.9 pg (27.0-31.0); Mean Corpuscular Volume 83.1 fL (80.0-94.0); Mean Platelet Volume 9.8 fL (7.4-10.4); Nucleated Red Blood Cells % 0 % (-); Platelet Count 82 10^3/uL (130-400); Red Blood Cell Count 3.08 10^6/uL (4.70-6.10); Red Cell Dist. Width 18.6 % (11.5-14.5); White Blood Cell Count 2.8 10^3/uL (4.8-10.8)
== END ==
LOC: CLINIC 09:27
PROVIDERS: ATTENDING PHYSICIAN Student in an Organized Health Care Education/Training Program; FAMILY PHYSICIAN Nurse Practitioner Adult Health
DX: D72.110 Idiopathic hypereosinophilic syndrome [IHES] (principal)
CPT/HCPCS: 36415; 85025

== ENCOUNTER → 2023-12-09 08:23 | Outpatient (REF) | payer OTHER, SELFPAY ==
[2023-12-09 09:39] LABS: % Basophils 0.4 % (0-2); % Eosinophils 1.7 % (0-6); % Immature Granulocytes 0.4 % (0-0.5); % Lymphocytes 24.8 % (20.5-51.1); % Monocytes 6.1 % (1.7-9.3); % Neutrophils 66.6 % (42.2-75.2); Absolute Lymphocytes 0.6 10^3/uL (1.2-3.4); Absolute Monocytes 0.1 10^3/uL (0.1-0.6); Absolute Neutrophils 1.5 10^3/uL (1.4-6.5); Hematocrit 26.8 % (39.0-52.0); Hemoglobin 8.6 g/dL (13.0-18.0); Mean Corp Hgb Conc. 32.1 g/dL (33.0-37.0); Mean Platelet Volume 9.4 fL (7.4-10.4); Nucleated Red Blood Cells % 0 % (-); Platelet Count 66 10^3/uL (130-400); Red Blood Cell Count 3.19 10^6/uL (4.70-6.10); Red Cell Dist. Width 18.3 % (11.5-14.5); White Blood Cell Count 2.3 10^3/uL (4.8-10.8)
== END ==
LOC: REG 08:23
PROVIDERS: ATTENDING PHYSICIAN Student in an Organized Health Care Education/Training Program
DX: D72.110 Idiopathic hypereosinophilic syndrome [IHES] (principal)
CPT/HCPCS: 36415; 85025

== ENCOUNTER → 2023-12-15 07:50 | Outpatient (REF) | payer SELFPAY | LOC: REG 07:50 | PROVIDERS: ATTENDING PHYSICIAN Student in an Organized Health Care Education/Training Program | DX: K57.30 Diverticulosis of large intestine without perforation or abscess without bleeding (principal); B99.8 Other infectious disease | CPT/HCPCS: 87177; 87209 ==

== ENCOUNTER → 2023-12-27 10:35 | Outpatient (REF) | payer OTHER, SELFPAY ==
[2023-12-27 12:40] LABS: INR 1.38; PT 16.8 Sec (11.4-14.6)
[2023-12-27 12:41] LABS: APTT 25.9 Sec (23.4-35.0)
[2023-12-27 12:54] LABS: ALT (SGPT) 83 U/L (0-50); AST (SGOT) 52 U/L (17-59); Albumin 3.4 g/dl (3.5-5.0); Alkaline Phosphatase 209 U/L (38-126); Blood Urea Nitrogen 16 mg/dl (9-20); Calcium 8.7 mg/dl (8.4-10.2); Carbon Dioxide 26 mmol/L (22-30); Chloride 108 mmol/L (98-107); Glucose 129 mg/dl (70-99); Potassium 3.5 mmol/L (3.5-5.1); Sodium 136 mmol/L (135-145); Total Bilirubin 1.7 mg/dl (0.2-1.3); Total Protein 6.6 g/dl (6.3-8.2); eGFR > 60.00
[2023-12-27 13:42] LABS: Hematocrit 30.9 % (39.0-52.0); Hemoglobin 9.7 g/dL (13.0-18.0); Mean Corp Hgb Conc. 31.4 g/dL (33.0-37.0); Mean Corpuscular Hgb 25.2 pg (27.0-31.0); Mean Corpuscular Volume 80.3 fL (80.0-94.0); Red Blood Cell Count 3.85 10^6/uL (4.70-6.10); Red Cell Dist. Width 17.2 % (11.5-14.5)
[2023-12-27 16:11] LABS: % Basophils 0.5 % (0-2); % Eosinophils 2.5 % (0-6); % Immature Granulocytes 0.5 % (0-0.5); % Lymphocytes 35.3 % (20.5-51.1); % Monocytes 8.3 % (1.7-9.3); % Neutrophils 52.9 % (42.2-75.2); Absolute Eosinophils 0.1 10^3/uL (0-0.7); Absolute Lymphocytes 1.4 10^3/uL (1.2-3.4); Absolute Monocytes 0.3 10^3/uL (0.1-0.6); Absolute Neutrophils 2.1 10^3/uL (1.4-6.5); Mean Platelet Volume 10.3 fL (7.4-10.4); Nucleated Red Blood Cells % 0 % (-); Platelet Count 65 10^3/uL (130-400)
== END ==
LOC: CLINIC 10:35
PROVIDERS: ATTENDING PHYSICIAN Family Medicine
DX: K74.60 Unspecified cirrhosis of liver (principal)
CPT/HCPCS: 36415; 80053; 85025; 85610; 85730

== ENCOUNTER → 2024-01-04 08:46 | Outpatient (REF) | payer OTHER, SELFPAY ==
[2024-01-04 10:18] LABS: % Basophils 0.5 % (0-2); % Immature Granulocytes 0.5 % (0-0.5); % Monocytes 11.5 % (1.7-9.3); % Neutrophils 60.5 % (42.2-75.2); Absolute Eosinophils 0.2 10^3/uL (0-0.7); Absolute Lymphocytes 0.9 10^3/uL (1.2-3.4); Absolute Monocytes 0.5 10^3/uL (0.1-0.6); Absolute Neutrophils 2.4 10^3/uL (1.4-6.5); Hematocrit 32.9 % (39.0-52.0); Hemoglobin 10.8 g/dL (13.0-18.0); Mean Corp Hgb Conc. 32.8 g/dL (33.0-37.0); Mean Corpuscular Hgb 26.8 pg (27.0-31.0); Mean Corpuscular Volume 81.6 fL (80.0-94.0); Mean Platelet Volume 11.1 fL (7.4-10.4); Nucleated Red Blood Cells % 0 % (-); Platelet Count 50 10^3/uL (130-400); Red Blood Cell Count 4.03 10^6/uL (4.70-6.10); Red Cell Dist. Width 18.3 % (11.5-14.5)
== END ==
LOC: CLINIC 08:46
PROVIDERS: ATTENDING PHYSICIAN Family Medicine; REFERRING PHYSICIAN Student in an Organized Health Care Education/Training Program
DX: D50.9 Iron deficiency anemia, unspecified (principal); D72.12 Drug rash with eosinophilia and systemic symptoms syndrome
CPT/HCPCS: 36415; 85025

== ENCOUNTER → 2024-01-24 08:46 | Outpatient (REF) | payer OTHER, SELFPAY ==
[2024-01-24 10:05] LABS: % Basophils 0.6 % (0-2); % Eosinophils 7.6 % (0-6); % Immature Granulocytes 0.3 % (0-0.5); % Lymphocytes 30.4 % (20.5-51.1); % Neutrophils 51.1 % (42.2-75.2); Absolute Eosinophils 0.3 10^3/uL (0-0.7); Absolute Monocytes 0.3 10^3/uL (0.1-0.6); Absolute Neutrophils 1.7 10^3/uL (1.4-6.5); Hematocrit 34.2 % (39.0-52.0); Mean Corp Hgb Conc. 32.2 g/dL (33.0-37.0); Mean Corpuscular Hgb 26.2 pg (27.0-31.0); Mean Corpuscular Volume 81.4 fL (80.0-94.0); Mean Platelet Volume 9.6 fL (7.4-10.4); Nucleated Red Blood Cells % 0 % (-); Platelet Count 93 10^3/uL (130-400); Red Cell Dist. Width 19.7 % (11.5-14.5); White Blood Cell Count 3.3 10^3/uL (4.8-10.8)
== END ==
LOC: CLINIC 08:46
PROVIDERS: ATTENDING PHYSICIAN Family Medicine
DX: D50.9 Iron deficiency anemia, unspecified (principal); D72.12 Drug rash with eosinophilia and systemic symptoms syndrome
CPT/HCPCS: 36415; 85025

== ENCOUNTER → 2024-02-01 08:57 | Outpatient (REF) | payer OTHER, SELFPAY ==
[2024-02-01 10:16] LABS: % Basophils 0.6 % (0-2); % Eosinophils 9.1 % (0-6); % Lymphocytes 31.2 % (20.5-51.1); % Neutrophils 48.1 % (42.2-75.2); Absolute Eosinophils 0.3 10^3/uL (0-0.7); Absolute Monocytes 0.4 10^3/uL (0.1-0.6); Absolute Neutrophils 1.5 10^3/uL (1.4-6.5); Hematocrit 32.3 % (39.0-52.0); Hemoglobin 10.3 g/dL (13.0-18.0); Mean Corp Hgb Conc. 31.9 g/dL (33.0-37.0); Mean Corpuscular Hgb 26.1 pg (27.0-31.0); Mean Corpuscular Volume 81.8 fL (80.0-94.0); Mean Platelet Volume 10.7 fL (7.4-10.4); Nucleated Red Blood Cells % 0 % (-); Platelet Count 84 10^3/uL (130-400); Red Blood Cell Count 3.95 10^6/uL (4.70-6.10); Red Cell Dist. Width 18.7 % (11.5-14.5); White Blood Cell Count 3.2 10^3/uL (4.8-10.8)
== END ==
LOC: CLINIC 08:57
PROVIDERS: ATTENDING PHYSICIAN Family Medicine; REFERRING PHYSICIAN Student in an Organized Health Care Education/Training Program
DX: D50.9 Iron deficiency anemia, unspecified (principal); D72.12 Drug rash with eosinophilia and systemic symptoms syndrome
CPT/HCPCS: 36415; 85025

== ENCOUNTER → 2024-02-16 09:04 | Outpatient (REF) | payer OTHER, SELFPAY ==
[2024-02-16 10:14] LABS: % Basophils 0.8 % (0-2); % Eosinophils 4.3 % (0-6); % Immature Granulocytes 0.3 % (0-0.5); % Lymphocytes 22.4 % (20.5-51.1); % Monocytes 8.4 % (1.7-9.3); % Neutrophils 63.8 % (42.2-75.2); Absolute Eosinophils 0.2 10^3/uL (0-0.7); Absolute Lymphocytes 0.8 10^3/uL (1.2-3.4); Absolute Monocytes 0.3 10^3/uL (0.1-0.6); Absolute Neutrophils 2.4 10^3/uL (1.4-6.5); Hematocrit 34.9 % (39.0-52.0); Mean Corp Hgb Conc. 31.5 g/dL (33.0-37.0); Mean Corpuscular Hgb 26.4 pg (27.0-31.0); Mean Corpuscular Volume 83.9 fL (80.0-94.0); Mean Platelet Volume 9.8 fL (7.4-10.4); Nucleated Red Blood Cells % 0 % (-); Platelet Count 113 10^3/uL (130-400); Red Blood Cell Count 4.16 10^6/uL (4.70-6.10); Red Cell Dist. Width 17.7 % (11.5-14.5); White Blood Cell Count 3.7 10^3/uL (4.8-10.8)
[2024-02-16 12:26] LABS: ALT (SGPT) 36 U/L (0-50); AST (SGOT) 39 U/L (17-59); Albumin 3.3 g/dl (3.5-5.0); Alkaline Phosphatase 238 U/L (38-126); Blood Urea Nitrogen 16 mg/dl (9-20); Calcium 8.3 mg/dl (8.4-10.2); Carbon Dioxide 22 mmol/L (22-30); Chloride 109 mmol/L (98-107); Direct Bilirubin 0.2 mg/dl (0.0-0.4); Glucose 134 mg/dl (70-99); Potassium 4.2 mmol/L (3.5-5.1); Sodium 141 mmol/L (135-145); Total Bilirubin 0.9 mg/dl (0.2-1.3); Total Protein 7.4 g/dl (6.3-8.2); eGFR > 60.00
[2024-02-16 23:44] LABS: IgA 1140 mg/dl (70-400)
[2024-02-18 17:13] LABS: Endomysial IgA Antibody Titer <1:10 (<1:10)
== END ==
LOC: REG 09:04
PROVIDERS: ATTENDING PHYSICIAN Nurse Practitioner
DX: K74.60 Unspecified cirrhosis of liver (principal)
CPT/HCPCS: 36415; 80053; 82248; 82784; 83516; 85025; 86231

== ENCOUNTER → 2024-10-31 10:24 | Outpatient (REF) | payer OTHER, SELFPAY ==
[2024-10-31 11:16] LABS: PT 16.4 Sec (11.4-14.6)
[2024-10-31 11:18] LABS: APTT 29.5 Sec (23.4-35.0); Hematocrit 31.2 % (39.0-52.0); Hemoglobin 9.9 g/dL (13.0-18.0); Mean Corp Hgb Conc. 31.7 g/dL (33.0-37.0); Mean Corpuscular Hgb 24.4 pg (27.0-31.0); Mean Corpuscular Volume 76.8 fL (80.0-94.0); Red Blood Cell Count 4.06 10^6/uL (4.70-6.10); Red Cell Dist. Width 17.2 % (11.5-14.5); White Blood Cell Count 2.1 10^3/uL (4.8-10.8)
[2024-10-31 11:31] LABS: ALT (SGPT) 38 U/L (0-50); AST (SGOT) 35 U/L (17-59); Albumin 3.5 g/dl (3.5-5.0); Alkaline Phosphatase 170 U/L (38-126); Blood Urea Nitrogen 17 mg/dl (9-20); Calcium 8.3 mg/dl (8.4-10.2); Carbon Dioxide 18 mmol/L (22-30); Chloride 116 mmol/L (98-107); Glucose 136 mg/dl (70-99); Potassium 3.9 mmol/L (3.5-5.1); Sodium 140 mmol/L (135-145); Total Bilirubin 1.7 mg/dl (0.2-1.3); Total Protein 7.2 g/dl (6.3-8.2); eGFR > 60.00
[2024-10-31 12:53] LABS: AFP Male/Tumor Marker 4.15 ng/ml
[2024-10-31 14:08] LABS: Mean Platelet Volume 10.6 fL (7.4-10.4); Platelet Count 62 10^3/uL (130-400)
[2024-10-31 14:13] LABS: % Basophils 0.5 % (0-2); % Eosinophils 6.3 % (0-6); % Lymphocytes 35.6 % (20.5-51.1); % Monocytes 10.6 % (1.7-9.3); Absolute Eosinophils 0.1 10^3/uL (0-0.7); Absolute Lymphocytes 0.7 10^3/uL (1.2-3.4); Absolute Monocytes 0.2 10^3/uL (0.1-0.6); Nucleated Red Blood Cells % 0 % (-)
== END ==
LOC: CLINIC 10:24
PROVIDERS: ATTENDING PHYSICIAN Internal Medicine Gastroenterology
DX: K74.60 Unspecified cirrhosis of liver (principal)
CPT/HCPCS: 36415; 80053; 82105; 85025; 85610; 85730